=== PATIENT | female | born 1965 | race Caucasian/White ===

== ENCOUNTER 2019-10-22 17:09 | Emergency (ER) | payer BC, SELFPAY ==
[2019-10-22 17:16] VITALS: BP 128/86; PULSE 112; RESP 20; TEMP 37.6; O2SAT 98
--- NOTE | 2019-10-22 17:37 | ED.URI ---
HPI - URI/Sore Throat General Chief Complaint: Upper Respiratory Infection Stated Complaint: sore throat/swollen glands/cough Related Data Home Medications Medication Instructions Recorded Confirmed bupropion HCl [Wellbutrin XL] 300 mg PO QAM 10/22/19 10/22/19 conjugated estrogens [Premarin] 0.625 mg PO DAILY 10/22/19 10/22/19 cyclosporine [Restasis] 1 drp OPHTHALMIC (EYE) Q12H 10/22/19 10/22/19 desloratadine [Clarinex] 5 mg PO DAILY 10/22/19 10/22/19 fluticasone furoate [Flonase 1 spray INTRANASAL DAILY 10/22/19 10/22/19 Sensimist] levothyroxine [Synthroid] 125 mcg PO DAILY 10/22/19 10/22/19 montelukast [Singulair] 10 mg PO DAILY 10/22/19 10/22/19 omeprazole 40 mg PO DAILY 10/22/19 10/22/19 spironolactone 100 mg PO BID 10/22/19 10/22/19 Allergies Allergy/AdvReac Type Severity Reaction Status Date / Time Sulfa (Sulfonamide Allergy Mild RASH Verified 10/22/19 17:24 Antibiotics) etodolac Allergy Unknown RASH Verified 10/22/19 17:24 Review of Systems Review of Systems: Narrative: CONSTITUTIONAL: Reports fever, chills, intermittently x1 week EYES: Denies visual changes, redness, or discharge. ENT: Reports rhinorrhea, congestion, sore throat, and bilateral otalgia. Reports facial pressure. CARDIOVASCULAR: Denies chest pain, palpitations, or edema. RESPIRATORY: Reports cough, denies dyspnea. GASTROINTESTINAL: Denies abdominal pain, nausea, vomiting, or diarrhea. GENITOURINARY: Denies dysuria or hematuria. SKIN: Denies rash or itching. MUSCULOSKELETAL: Denies back pain, joint pain, or myalgia. NEUROLOGIC: Denies headache, numbness, dizziness, or weakness. PSYCHIATRIC: Denies anxiety or depression. [facility] Past Medical History Medical History Acute ITP Anxiety Asthma Bipolar disorder Depression Endometriosis GERD (gastroesophageal reflux disease) GI bleed Hiatal hernia Hypothyroidism IBS (irritable bowel syndrome) Lupus (systemic lupus erythematosus) Migraines Peripheral neuropathy Pneumonia Sciatica Surgical History Surgical History H/O hysterectomy with oophorectomy S/P insertion of spinal cord stimulator Social History Social History (Updated 10/22/19 @ 17:42 by RICHIE Segal) Smoking status: Current every day smoker Alcohol intake: current Alcohol use details: Socially Substance use: never Gender identity (if verbalized by the patient): Female Exam Narrative: Exam Narrative: GENERAL: Well-appearing, well-nourished, and in no acute distress. HEAD: Normocephalic, atraumatic. EYES: EOMI. No redness or drainage. Conjunctiva are normal. ENT: Mucous membranes pink and moist. Nares clear. No rhinorrhea. TMs normal bilaterally. Throat erythema, edema. Maxillary sinus tenderness with palpation. Uvula midline. NECK: AROM. Supple. Positive cervical lymphadenopathy. CHEST: No respiratory distress. Clear to auscultation. HEART: Regular rate and rhythm. No murmur appreciated. Normal peripheral pulses. EXTREMITIES: Normal range of motion. No edema. SKIN: Warm, dry, no rash. NEURO: No focal deficits. Alert and oriented x3. Gait steady. PSYCH: Normal affect. No signs of depression or anxiety. Course Vital Signs Vital signs: Vital Signs Temperature 37.6 C H 10/22/19 17:16 Pulse Rate 112 H 10/22/19 17:16 Respiratory Rate 10/22/19 17:16 Blood Pressure 128/86 10/22/19 17:16 Pulse Oximetry 98 10/22/19 17:16 Temperature 37.6 C H 10/22/19 17:16 Pulse Rate 112 H 10/22/19 17:16 Respiratory Rate 10/22/19 17:16 Blood Pressure 128/86 10/22/19 17:16 Pulse Oximetry 98 10/22/19 17:16 MDM - URI/Sore Throat Differential Diagnosis Differential diagnosis: Likely upper respiratory infection, sinusitis and pharyngitis Critical Care Time Critical Care Time Critical Care Time: No Discharge Plan Discharge Clinical Impression: Sinusi
== END 2019-10-22 17:58 | disposition home or self-care (01) ==
PROVIDERS: Emergency Provider Nurse Practitioner; PCP Emergency Medicine
DX: J32.9 Chronic sinusitis, unspecified (principal); J06.9 Acute upper respiratory infection, unspecified; F17.200 Nicotine dependence, unspecified, uncomplicated; J45.909 Unspecified asthma, uncomplicated; N80.9 Endometriosis, unspecified; K21.9 Gastro-esophageal reflux disease without esophagitis; E03.9 Hypothyroidism, unspecified; M32.9 Systemic lupus erythematosus, unspecified; G62.9 Polyneuropathy, unspecified; F32.9 Major depressive disorder, single episode, unspecified; Z96.89 Presence of other specified functional implants
CPT/HCPCS: 87081; 87804; 87880; 99213; G0463

== ENCOUNTER 2020-02-04 07:00 | Outpatient (CLI) | payer BC, SELFPAY ==
--- NOTE | ~2020-02-04 | CT_ITS ---
EXAMINATION: CT abdomen pelvis w con INDICATION: Generalized abdominal pain, nausea, diarrhea TECHNIQUE: Computed tomographic images of the abdomen and pelvis were obtained after the administrati on of 100 cc of Omnipaque 350 intravenous contrast. The dose-length product (DLP) was 248.45 mGy-cm. Automated exposure control and iterative reconstruction technique were employed. COMPARISON: 08/24/2019 FINDINGS: The lung bases are clear. The heart size is normal. The liver, spleen, pancreas, gallbladde r, and adrenal glands are normal. Again noted is mild atrophy of the left kidney with areas of scarri ng in the upper and lower poles. The right kidney is unremarkable. There is a greater than normal num nick of fluid-filled, nondistended small bowel loops. No pathologically enlarged abdominal or pelvic l ymph nodes are identified. There is no free intraperitoneal gas or evidence of bowel obstruction. A m oderate volume of colonic stool is present. The appendix is normal. There is mild lumbar spondylosis. IMPRESSION: 1. Greater than normal number of fluid-filled, nondistended small bowel loops, suggestive of enteriti s. Reviewed, dictated and finalized at location A. IMPRESSION: 1. Greater than normal number of fluid-filled, nondistended small bowel loops, suggestive of enteritis.
== END 2020-02-04 07:01 | disposition home or self-care (01) ==
PROVIDERS: PCP Emergency Medicine; Visit Provider Internal Medicine Gastroenterology
DX: R10.84 Generalized abdominal pain (principal); R19.7 Diarrhea, unspecified; K21.9 Gastro-esophageal reflux disease without esophagitis; E03.9 Hypothyroidism, unspecified; M32.9 Systemic lupus erythematosus, unspecified; Z12.11 Encounter for screening for malignant neoplasm of colon; Z86.010 Personal history of colon polyps; R93.3 Abnormal findings on diagnostic imaging of other parts of digestive tract
CPT/HCPCS: 74177; Q9967

== ENCOUNTER 2020-10-21 07:15 | Outpatient (CLI) | payer BC, SELFPAY ==
--- NOTE | ~2020-10-21 | MM_ITS ---
EXAMINATION: MM screening zacarias BI w cortney HISTORY: Screening mammogram TECHNIQUE: Craniocaudal and mediolateral oblique 3-D tomosynthesis images were obtained and synthetic 2-D images were generated. CAD analysis was submitted and interpreted. COMPARISON: 09/28/2019, 09/14/2018, 06/15/2017, 05/15/2017 BREAST PARENCHYMAL COMPOSITION: The breasts are heterogeneously dense, which may obscure small masses . FINDINGS: Scattered benign-appearing calcifications are present. There is no evidence of suspicious m ass, calcification, or architectural distortion to suggest malignancy in either breast. There has bee n no suspicious interval change. IMPRESSION: 1. No mammographic evidence of malignancy. 2. Recommend routine screening mammography in one year. BI-RADS Category 2: Benign finding(s). Reviewed, dictated and finalized at location A. RIPSAW OPERATOR
== END 2020-10-21 07:16 | disposition home or self-care (01) ==
LOC: ANHIMG 07:17
PROVIDERS: PCP Emergency Medicine; Visit Provider Nurse Practitioner
DX: Z12.31 Encounter for screening mammogram for malignant neoplasm of breast (principal)
CPT/HCPCS: 77063; 77067

== ENCOUNTER 2024-01-09 08:29 | Outpatient (CLI) | payer BC, SELFPAY ==
--- NOTE | ~2024-01-09 | MM_ITS ---
EXAMINATION: MM screening zacarias BI w cortney HISTORY: Screening mammogram TECHNIQUE: Craniocaudal and mediolateral oblique 3-D tomosynthesis images were obtained and synthetic 2-D images were generated. CAD analysis was submitted and interpreted. COMPARISON: October 21, 2020, September 28, 2019 bilateral screening mammogram examinations BREAST PARENCHYMAL COMPOSITION: The breasts are heterogeneously dense, which may obscure small masses . FINDINGS: There are scattered bilateral benign calcifications. There is no evidence of suspicious mas s, calcification, or architectural distortion to suggest malignancy in either breast. There has been no suspicious interval change. IMPRESSION: 1. No mammographic evidence of malignancy. 2. Recommend routine screening mammography in one year. BI-RADS Category 2: Benign finding(s). Reviewed, dictated and finalized at location A.
--- NOTE | ~2024-01-09 | DEXA_ITS ---
Bone Density Report Name: BRIGIDA WHITE Age: 58 Sex: Female Ethnicity: White Date of : 1965 Indication: postmenopausal; screening for osteoporosis; height loss; inflammatory bowel disease; prior fracture; asthma or emphysema; end stage renal disease; hysterectomy; secondary osteoporosis; Referring Provider: JENNIFER, AUGIE Study: Bone densitometry was performed. Exam Date: January 09, 2024 Accession number: [id number] Bone Density: Region BMD T-score Z-score Classification Femoral Neck (Left) 0.839 -0.1 1.2 Normal Total Hip (Left) 1.058 1.0 1.9 Normal Femoral Neck (Right) 0.856 0.1 1.4 Normal Total Hip (Right) 1.035 0.8 1.8 Normal Total Hip Mean 1.046 0.9 1.9 Normal World Health Organization criteria for BMD impression classify patients as: Normal (T-score at or above -1.0), Osteopenia (T-score between -1.0 and -2.5), or Osteoporosis (T-score at or below -2.5). 10-year Fracture Risk: FRAX not reported because: All T-scores for Spine Total, Hip Total, Femoral Neck at or above -1.0 Previous Exams: Region Exam Age BMD T-score BMD Change BMD Change Date g/cm2 vs Baseline vs Previous Total Hip(Left) 01/09/2024 58 1.058 1.0 -0.126 (-10.6% -0.221 (-17.3% 12/08/2018 53 1.279 2.8 0.095 (8.0%)* 0.095 (8.0%)* 09/03/2015 50 1.184 2.0 Total Hip(Right) 01/09/2024 58 1.035 0.8 -0.136 (-11.6% -0.198 (-16.1% 12/08/2018 53 1.233 2.4 0.062 (5.3%)* 0.062 (5.3%)* 09/03/2015 50 1.171 1.9 *Denotes significance at 95% confidence level, LSC for Total Hip = 0.027 g/cm2 # Denotes dissimilar scan types or analysis methods Clinical Information Provided by Patient: Has had a low trauma fracture Has secondary osteoporosis Has used the following medications: Vitamin D Has the following medical conditions: Asthma or Emphysema, End stage renal disease, Inflammatory bowel diseases, Hysterectomy Patient maximum height was 64 No regular weight bearing exercise Does not regularly consume dairy products Drinks caffeinated beverages Onset of menses at age 10 Number of children 2 Impression: The patient has normal bone mass. The patient has risk factors, including: previous fracture. No significant bone loss was observed. Discussion: BONE DENSITY IS ABOVE THE MINIMUM DESIRABLE LEVEL AT ALL SKELETAL SITES TESTED. This patient?s bone mineral density is above the minimum desirable level (T-score -1.0 or better) at all sites measured. The patient should follow a healthfu
== END 2024-01-09 08:30 | disposition home or self-care (01) ==
PROVIDERS: PCP Emergency Medicine; Visit Provider Nurse Practitioner
DX: Z12.31 Encounter for screening mammogram for malignant neoplasm of breast (principal); Z78.0 Asymptomatic menopausal state; Z13.820 Encounter for screening for osteoporosis
CPT/HCPCS: 77063; 77067; 77080

== ENCOUNTER 2025-04-23 13:59 | Outpatient (CLI) | payer BC, SELFPAY ==
--- NOTE | ~2025-04-23 | MM_ITS ---
EXAMINATION: MM screening [facility] BI w cortney HISTORY: Screening TECHNIQUE: Craniocaudal and mediolateral oblique 3-D tomosynthesis images were obtained and synthetic 2-D images were generated. CAD analysis was submitted and interpreted. COMPARISON: Comparison to multiple prior studies sequentially, with oldest reviewed study dated 05/17. BREAST PARENCHYMAL COMPOSITION: The breasts are heterogeneously dense, which may obscure small masses . FINDINGS: There is no evidence of suspicious mass, calcification, or architectural distortion to sug gest malignancy in either breast. Scattered benign-appearing calcifications are present. IMPRESSION: 1. No mammographic evidence of malignancy. 2. Recommend routine screening mammography in one year. BI-RADS Category 2: Benign finding(s). Reviewed, dictated and finalized at location B.
--- OUTSIDE RECORDS SUMMARY | 2025-04-23 14:10 | XMS_ITS | Clinical Summary ---
Author Organization [facility] Address [address] [place] [address] Care Team Providers Care Net Making Supervisor Name Role Phone Sid Ortiz MD Primary Care Provider [phone] Allergies Active Allergy Reactions Criticality Noted Date Comments Sulfa (Sulfonamide Antibiotics) Rash Medium Medications buPROPion XL (WELLBUTRIN XL) 300 mg 24 hr tablet Take 300 mg by mouth daily 4 Active cholecalciferol (VITAMIN D-3) 25 mcg (1,000 unit) tablet Take by mouth daily Active biotin 5 mg tablet Take 5 mg by mouth daily Active desloratadine (Clarinex) 5 mg tablet Take 1 tablet by mouth daily 9 Active hydrOXYchloroQUIN E (PLAQUENIL) 200 mg tablet TAKE ONE AND ONE-HALF TABLETS DAILY 9 Active levothyroxine (Synthroid) 137 mcg tablet Take 1 tablet by mouth daily 1 Active montelukast (Singulair) 10 mg tablet Take 1 tablet by mouth daily 9 Active omeprazole (PriLOSEC) 40 mg capsule Take 40 mg by mouth 9 Active spironolactone (ALDACTONE) 100 mg tablet Take 100 mg by mouth 2 (two) times a day Active fluticasone propionate (FLONASE) 50 mcg/actuation nasal spray Administer 1 spray into each nostril daily Active cycloSPORINE (RESTASIS) 0.05 % ophthalmic emulsion 1 drop 2 (two) times a day Active epinastine 0.05 % ophthalmic solution 1 drop 2 (two) times a day Active levothyroxine (SYNTHROID) 125 mcg tablet Take 125 mcg by mouth medical or surgical instrument maker before breakfast Active lubiprostone (AMITIZA) 24 mcg capsule Take 24 mcg by mouth 2 (two) times a day with meals Active hyoscyamine (LEVSIN) 0.125 mg tabletIndications :Urinary Incontinence Take 0.125 mg by mouth every 4 (four) hours as needed for cramping Active meclizine (ANTIVERT) 12.5 mg tablet Take 12.5 mg by mouth 3 (three) times a day as needed for dizziness Active HYDROcodone-aceta minophen (NORCO) 5-325 mg per tabletIndications :Pain,dx: post op pain Take 1 tablet by mouth every 4 (four) hours as needed for pain 30 tablet Active Active Problems Problem Noted Date Diagnosed Date Neuropathy 04/29/2021 Right carpal tunnel syndrome 03/02/2021 Cubital tunnel syndrome on right 02/23/2021 Essential (primary) hypertension 12/25/2020 Gastro-esophageal reflux disease without esophag itis 12/25/2020 Chronic constipation 03/11/2020 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 11/09/2019 Chronic pain syndrome 07/09/2016 Somatic symptom disorder, pe rsistent, severe, with predominant pain 07/09/2016 Knee pain 05/08/2014 Major depressive disorder, single episode, mild 11/27/2013 Malaise and fatigue 11/27/2013 Low back pain 02/16/2013 Encounter for long-term (cur rent) use of high-risk medication 10/31/2012 Systemic lupus erythematosus 09/15/2011 Hypothyroidism 09/19/1994 Surgical History Surgery Date Site/Laterality Comments TEMPOROMANDIBULAR JOINT ARTHROPLASTY HYSTERECTOMY BLADDER SURGERY SPINE SURGERY 09/19/2016 - 09/18/2017 Left SPINAL CORD STIMULATOR CARPAL TUNNEL RELEASE 04/09/2021 Right RT.OPEN CTR Medical History Medical History Date Comments Peripheral neuropathy Lupus 2010 LUPUS SLE Fibromyalgia PONV (postoperative nausea and vomiting) Motion sickness Asthma Pneumonia Irritable bowel syndrome GERD (gastroesophageal reflux disease) Urinary tract infection Hypothyroidism Headache Depression Anxiety Family History Medical History Relation Name Comments Cancer Father Heart disease Father Arthritis Mother Cancer Mother Relation Name Status Comments Father Mother Social History Tobacco Use Types Packs/Day Years Used Date Smoking Tobacco: Never Smokeless Tobacco: Never AUDIT-C Answer Date Recorded Q1: How often do you have a drink containing alc ohol? 2-3 times a week 04/02/2021 Q2: How many drinks containi ng alcohol do you have on a typical day when you are drinking? 1 or 2 04/02/2021 Q3: How often do you have si x or more drinks on one occasion? Never 04/02/2021 Comments No Sex and Gender Information Value Date Recorded Sex Assigned at Not on file Legal Sex Female 12:55 AM X [employer] SERV[employer] ENGINE[employer] Gender Identity Female 02/24/2021 10:21 AM CDT Sexual Orientation Not on file Obstetrics History Last Filed Vital Signs Vital Sign Reading Time Taken Comments Blood Pressure 128/81 04/09/2021 11:20 AM CDT Pulse 69 04/09/2021 11:20 AM CDT Temperature 36.3 C (97.3 F) 04/09/2021 10:50 AM CDT Respiratory Rate 16 04/09/2021 11:20 AM CDT Oxygen Saturation 96% 04/09/2021 11:20 AM CDT Inhaled Oxygen Concentration - - Weight 61.7 kg (136 lb 1.6 oz) 04/09/2021 7:49 A M CDT Height 160 cm (5' 3) 04/09/2021 7:49 AM CDT Body Mass Index 24.11 04/09/2021 7:49 AM CDT Plan of Treatment Not on file Insurance [address] [place] [address] [facility] [employer] ACCESS CHOICE Care Teams Net Making Supervisor Relationship Specialty Start Date End Date Sid Ortiz MD [address] [place] [address] PCP - General Family Medicine 01/09/21
--- OUTSIDE RECORDS SUMMARY | 2025-04-23 14:10 | XMS_ITS | Encounter Summary ---
Author Organization [facility] Address [facility] [place] [address] Care Team Providers Care Yarrow Gatherer Name Role Phone Cande Dudley MD Primary Care Provider [phone] Encounter Details Date Type Department Care Team (Late st Contact Info) Description 11/27/2024 [facility] Family Medicine [facility] [address] [place] [phone] Cande Dudley MD [address] [place] [id number] Persistent cough Social History Tobacco Use Types Packs/Day Years Used Date Smoking Tobacco: Never Smokeless Tobacco: Never Alcohol Use Standard Drinks/Week Comments Yes 1.7 (1 standard drink = 0.6 oz p ure alcohol) occ B1300 Health Literacy Answer Date Recor ded How often do you need to hav e someone help you when you read instructions, pamphlets, or other written material from your doctor or pharmacy? Never 06/20/2024 [facility] Utilities Answer Date Recorded In the past 12 months has e [employer], gas, oil, or water [employer] threatened to shut off services in your home? No 06/20/2024 Humiliation, Afraid, Rape, and Kick questionnair e Answer Date Recorded Within the last year, have y ou been afraid of your partner or ex-partner? No 06/20/2024 Within the last year, have y ou been humiliated or emotionally abused in other ways by your partner or ex-partner? No Within the last year, have y ou been kicked, hit, slapped, or otherwise physically hurt by your partner or ex-partner? No 06/20/2024 Within the last year, have y ou been raped or forced to have any kind of sexual activity by your partner or ex-partner? No 06/20/2024 Social Connection and Isolat ion Panel [NHANES] Answer Date Recorded In a typical week, how many times do you talk on the phone with family, friends, or neighbors? Three times a week 06/20/2024 How often do you get togethe r with friends or relatives? Twice a week 06/20/2024 How often do you attend chur ch or restorationist services? More than 4 times per year 06/20/2024 Do you belong to any clubs o r organizations such as taoist groups, unions, fraternal or athletic groups, or school groups? No 06/20/2024 How often do you attend meet ings of the clubs or organizations you belong to? Never 06/20/2024 Are you , , di vorced, , never , or living with a partner? 06/20/2024 AUDIT-C Answer Date Recorded Q1: How often do you have a drink containing alc ohol? 2-4 times a month 06/20/2024 Q2: How many drinks containi ng alcohol do you have on a typical day when you are drinking? 1 or 2 06/20/2024 Q3: How often do you have si x or more drinks on one occasion? Never 06/20/2024 Overall Financial Resource Strain (CARDIA) Answe r Date Recorded How hard is it for you to pa y for the very basics like food, housing, medical care, and heating? Not hard at all 06/20/2024 PHQ-2 Answer Date Recorded Patient Health Questionnaire-2 Score 0 11/23/2024 [facility] - Occupational Stress Questionnaire Answer Date Recorded Do you feel stress - tense, restless, nervous, or anxious, or unable to sleep at night because your mind is troubled all the time - these days? To some extent 06/20/2024 Exercise Vital Sign Answer Date Recorde d On average, how many days pe r week do you engage in moderate to strenuous exercise (like a brisk walk)? 0 days 06/20/2024 On average, how many minutes do you engage in exercise at this level? 0 min 06/20/2024 Hunger Vital Sign Answer Date Recorded Within the past 12 months, y ou worried that your food would run out before you got the money to buy more. Never true 06/20/20 24 Within the past 12 months, t he food you bought just didn't last and you didn't have money to get more. Never true 06/20/2024 PRAPARE - Transportation Answer Date Re corded In the past 12 months, has l ack of transportation kept you from medical appointments or from getting medications? No 10/2023 In the past 12 months, has l ack of transportation kept you from meetings, work, or from getting things needed for daily living? No 06/20/2024 Housing Stability Vital Sign Answer Javier e Recorded In the last 12 months, was t here a time when you were not able to pay the mortgage or rent on time? No 06/20/2024 In the past 12 months, how m any times have you moved where you were living? 2 06/20/2024 At any time in the past [address] [facility], were you homeless or living in a senior living (including now)? No 06/20/2024 Comments No Sex and Gender Information Value Date Recorded Sex Assigned at Female 10/05/2024 9:12 AM FERMENTER [place] Legal Sex Female 11:15 AM CDT Gender Identity Not on file Sexual Orientation Not on file documented as of this encounter Functional Status * Are you deaf or do you have serious difficulty hearing Answer Date of Assessment Author Status No 06/20/2024 11:00 PM ELMAT Carol Oreilly RN Active * Are you blind or do you have serious difficulty seeing, even when wearing glasses? Answer Date of Assessment Author Status No 06/20/2024 11:00 PM ELMAT Carol Oreilly RN Active * Do you have serious difficulty walking or climbing stairs? Answer Date of Assessment Author Status No 06/20/2024 11:00 PM Carol Long RN Active * Do you have difficulty dressing or bathing? Answer Date of Assessment Author Status No 06/20/2024 11:00 PM Carol Long RN Active * Because of a physical, mental, or emotional condition, do you have difficulty doing errands alone such as visiting a doctor's office or shopping? Answer Date of Assessment Author Status No 06/20/2024 11:00 PM CDT Carol Oreilly RN Active documented as of this encounter Mental Status * Because of a physical, mental, or emotional condition, do you have serious difficulty concentrating, remembering, or making decisions? Answer Entry Date Author Status No 06/20/2024 11:00 PM CDT Carol Oreilly RN Active documented in this encounter Progress Notes * Cande Dudley MD - 11/27/2024 2:18 PM CDT concur documented in this encounter Plan of Treatment Upcoming Encounters Date Type Department Care Team (Late st Contact Info) Description 04/23/2025 4:00 PM CDT Appointment [facility] [address] [place] [address] [place], [place] [address] [id number] 04/25/2025 4:00 PM CDT Appointment [facility] [address] [place] [address] [place], [place] [address] [id number] 06/20/2025 3:00 PM CDT Office Visit [facility] Family Medicine [facility] [address] [place] [address] Cande Dudley MD [address] [place], [place] [id number] documented as of this encounter Goals Goal Patient Goal Type Associated Problems Recent Progress Patient-Stated? Author Health - patient able to perform ADLs independently Lifestyle No Kelly Pollack RN documented as of this encounter Visit Diagnoses Not on filedocumented in this encounter Additional Health Concerns Assessment Noted Time PHQ-9 Depression Total Score: 2 06/28/20 2:57 PM CDT documented as of this encounter Care Teams Yarrow Gatherer Relationship Specialty Start Date End Date Cande Dudley MD [address] [place] [address] PCP - General FAMILY PRACTICE 06/21/24 documented as of this encounter
--- OUTSIDE RECORDS SUMMARY | 2025-04-23 14:10 | XMS_ITS | Clinical Summary ---
Author Organization [facility] Address [address] [place] [address] Care Team Providers Care Garment Manufacturer Name Role Phone Cande Dudley MD Primary Care Provider [phone] Allergies Active Allergy Reactions Criticality Noted Date Comments Sulfa Antibiotics Rash Low 06/20/2024 Medications albuterol sulfate HFA 108 (90 Base) MCG/ACT inhaler Inhale 2 puffs into the lungs every 6 (six) hours as needed for Shortness of breath or Wheezing (Asthmatic cough). 3 Active buPROPion XL (WELLBUTRIN XL) 150 MG 24 hr tablet Take 1 tablet (150 mg total) by mouth every morning. 4 Active Cholecalciferol (VITAMIN D3 OR) Take 1 Dose by mouth daily. Active cycloSPORINE (RESTASIS) 0.05 % ophthalmic emulsion Place 1 drop into both eyes daily. Active desloratadine (CLARINEX) 5 MG Tab tablet Take 1 tablet (5 mg total) by mouth daily. 4 Active desvenlafaxine ER (PRISTIQ) 50 MG 24 hr tablet Take 1 tablet (50 mg total) by mouth daily. 4 Active fluticasone propionate (FLONASE) 50 MCG/ACT nasal spray 1 spray by Each Nostril route daily. 3 Active hydroxychloroquin e (PLAQUENIL) 200 MG tablet Take 1.5 tablets (300 mg total) by mouth daily. 4 Active levothyroxine (SYNTHROID) 100 MCG tablet Take 1 tablet (100 mcg total) by mouth every morning. Active montelukast (SINGULAIR) 10 MG tablet Take 1 tablet (10 mg total) by mouth daily. 4 Active olopatadine (PATADAY) 0.7 % ophthalmic solution Place 1 drop into both eyes daily. 3 Active GABAPENTIN OR Take 1 capsule by mouth nightly as needed (neuropathy). Active omeprazole (PRILOSEC) 20 MG capsule Take 1 capsule (20 mg total) by mouth 2 (two) times a day. Active Brimonidine Tartrate (LUMIFY OP) Place 1 drop into both eyes 2 (two) times daily as needed (Dry eye). Active NON FORMULARY Take 2.5 mg by mouth daily. L-methyl folate Active Magnesium Glycinate Powder Take 1 Scoop by mouth daily. Mix with 8 oz water Active lisinopril (PRINIVIL) 10 MG tabletIndications :Primary hypertension Take 1 tablet (10 mg total) by mouth daily. 90 tablet 1 5 Active AIRSUPRA 90-80 MCG/ACT Aerosol Take 2 puffs by mouth every 4 (four) hours as needed. 4 Active estradiol (VIVELLE-DOT) 0.0375 mg/24hr patch APPLY 1 PATCH TOPICALLY TO THE SKIN 2 TIMES A WEEK DIRECTED 5 Active liothyronine (CYTOMEL) 5 MCG Tab every 12 (twelve) hours. Active pregabalin (LYRICA) 50 MG capsule 1 capsule (50 mg total) every 12 (twelve) hours. Active ZEPBOUND 2.5 MG/0.5ML injection Inject 2.5 mg into the skin once a week. 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 06/20 Depression screen 07/13/2024 Hypertensive urgency 06/20/2024 Chronic kidney disease 06/01/2021 Irritable bowel syndrome with constipation 04/30 Essential hypertension, benign 12/25/2020 Gastro-esophageal reflux disease without esophag itis 12/25/2020 Mild intermittent asthma, uncomplicated (HHS/HCC ) 12/02/2020 Irritable bowel syndrome with constipation 03/11 Idiopathic progressive polyneuropathy 03/10/2020 Chronic pain syndrome 07/09/2016 Knee pain 05/08/2014 Major depressive disorder, single episode, mild 11/27/2013 Lupus erythematosus 11/12/2009 Allergic rhinitis 02/29/2008 Intrinsic asthma (HHS/HCC) 02/29/2008 Hypothyroidism 11/12/1989 Encounters Date Type Department Care Team Description 04/18/2025 10:03 AM CDT - 04/18/2025 11:59 PM CDT Hospital Encounter [facility] [address] [place] [address] Non-Staff, Provider Discharge Disposition: Home or Self Care (Routine Discharge) 04/18/2025 Travel 04/03/2025 Transcribe Orders [facility] Pre Access Team [address] [place] [address] Chente Lucia MD 04/02/2025 Scan [facility] HEALTH INFO SRVCS Scanned, Doc [facility] 01/26/2025 Orders Only [facility] Family Medicine [id number] [place] [address] Cande Dudley MD from Last 3 Months Immunizations Immunization Administration Dates Next Due Fluzone (IIV3, Trivalent, 0.5 ML Prefilled Syrin ) 07/13/2024 Influenza (Generic) 07/16/2021,08/29/2015 Influenza Adult (Generic) 07/15/2021,05/28/2020 MODERNA COVID-19 (FRYLINE ATTENDANT LEO CHELSIE), MRNA, LNP-S, PF, 50 MCG/ 0.25 ML DOSE 01/01/2022 PFIZER COVID-19 (ORIGINAL FO RMULATION, PURPLE CAP) mRNA, LNP-S, PF, 30 MCG/0.3 ML DOSE 01/15/2021,12/20/2020 Family History Medical History Relation Comments Cancer Father Heart Disease Father Cancer Mother Hypertension Mother Asthma Son Depression Son Mental Health Son Relation Status Comments Father Mother Son Social History Tobacco Use Types Packs/Day Years Used Date Smoking Tobacco: Never Smokeless Tobacco: Never Tobacco Cessation:Counseling Given: No Alcohol Use Standard Drinks/Week Comments Yes 1.7 (1 standard drink = 0.6 oz p ure alcohol) occ B1300 Health Literacy Answer Date Recor ded How often do you need to hav e someone help you when you read instructions, pamphlets, or other written material from your doctor or pharmacy? Never 06/20/2024 [facility] Utilities Answer Date Recorded In the past 12 months has th e electric, gas, oil, or water company threatened to shut off services in your [...] 06/20/2024 How often do you attend chur or faith services? More than 4 times per year 06/20/2024 Do you belong to any clubs o r organizations such as orthodoxy groups, unions, fraternal or athletic groups, or [...] Recorded Patient Health Questionnaire-2 Score 0 11/23/2024 [facility] [place] of Occupat ional Health - Occupational Stress Questionnaire Answer Date [...] any time in the past 12 m [facility], were you homeless or living in a long term (including now)? No 06/20/2024 Comments No Sex and Gender Information Value Date Recorded Sex Assigned at Female 10/05/2024 9:12 AM ELECTRONIC SYSTEMS SECURITY ASSESSMENT Legal Sex Female 11:15 AM CDT Gender Identity Not on file Sexual Orientation Not on file Last Filed Vital Signs Vital Sign Reading Time Taken Comments Blood Pressure 110/75 01/01/2025 3:38 PM CDT Pulse 85 01/01/2025 3:38 PM CDT Temperature 36.4 C (97.6 F) 01/01/2025 3:38 PM CDT Respiratory Rate 16 01/01/2025 3:38 PM CDT Oxygen Saturation 100% 01/01/2025 3:38 PM CDT Inhaled Oxygen Concentration - - Weight 64.7 kg (142 lb 9.6 oz) 01/01/2025 3:38 P M CDT Height 160 cm (5' 3) 12/12/2024 1:05 PM CDT Body Mass Index 25.26 12/12/2024 1:05 PM CDT Plan of Treatment Upcoming Encounters Date Type Department Care Team (Late st Contact Info) Description 04/23/2025 4:00 PM CDT [facility] [address] [place] [address] Gre[place]osey, [place] [address] [address] 04/25/2025 4:[address] [facility] [address] [place] [address] [place], [place] [address] [address] 06/20/2025 3:00 PM CDT Office Visit [facility] Family Medicine [facility] [address] [place] [phone] Cande Dudley MD [address] [place] [address] Health Maintenance Due Date Last Done Comments DTaP, Tdap and Td Vaccines ( 1 - Tdap) 1982 Pneumococcal Vaccine: 50+ Years (1 of 2 - PCV) 1982 Annual Physical 07/13/2025 07/13/2024 COVID-19 Vaccine (4 - 2023-2 5 season) 2025 01/01/2022, 01/15/2021, 12/20/2020 Postponed from 05/20/2024 (Patient Refused) RSV Immunization or 60+ Years (1 - Risk 60-74 years 1-dose series) 07/13/2025 Postponed from 12/2022 (Patient Refused) Zoster Vaccines (1 of 2) 07/13/2025 Pos tponed from 2013 (Patient Refused) Colorectal Cancer Screening Colonoscopy (10 Years) 09/19/2025 Mammogram Screening 12/18/2025 Hepatitis C Completed 07/05/2024 PHQ-2 (Physician Council) Completed 11/23/2024 Meningococcal B Vaccine Aged Out No l onger eligible based on patient's age to complete this topic Meningococcal Vaccine Aged Out No danielle leonor eligible based on patient's age to complete this topic RSV Immunizations Under 20 Months Aged Out No longer eligible b ased on patient's age to complete this topic Goals Goal Patient Goal Type Associated Problems Recent Progress Patient-Stated? Author Health - patient able to perform ADLs independently Lifestyle No Kelly Pollack, RN Medical Devices Implanted Type Area Broadcast Engineer Device Identifier Shelf Expiration Date Model / Serial / Lot Stimulator Lead Implant-2016 Implanted:Qty : 1 on 10/01/2016 by Nicole Alfonso MD Lead Implant Spine Thoracic [employer] [id number] / [id number] / Stimulator Lead Implant-2016 Implanted:Qty : 1 on 10/01/2016 by Nicole Alfonso MD Lead Implant Spine Thoracic [employer] [id number] / [id number] / Stimulator Implant-2016 Implanted:Qty : 1 on 10/01/2016 by Nicole Alfonso MD Stimulator Implant Back [employer] [id number] / [id number] / Procedures Procedure Name Priority Date/Time Associated Diagnosis Comments XR ABD AP+LAT STAT 04/18/2025 10:48 AM CDT Encounter for imaging to screen for metal prior to MRI HEMOGLOBIN, GLYCOSYLATED Routine 01/26/2025 10:24 AM CDT CBC W/DIFF AUTOMATED Routine 01/26/2025 10:24 AM CDT COMPREHENSIVE METABOLIC PANEL Routine 01/26/2025 10:24 AM CDT LIPID PANEL Routine 01/26/2025 10:24 AM CDT HEPATITIS C ANTIBODY W/RFX TO HCV RNA Routine 07/05/2024 9:49 AM CDT from Last 3 Months or Most Recently Relevant to Health Maintenance Results * XR ABD AP+LAT (04/18/2025 10:48 AM CDT) Anatomical Region Laterality Modality Abdomen Radiographic Marla ging 04/18/2025 11:0 1 AM CDT Impressions 04/18/2025 11:44 AM CDT IMPRESSION: Implanted stimulator device with intact dual leads. Ordered By: PROVIDER NON-STAFF Interpreted By: Mal Rai, 04/18/2025 11:01 AM Narrative 04/18/2025 11:44 AM CDT [address] [address] IMAGING STUDIES: XR ABD AP+LAT DATE: 04/18/2025 10:30 AM HISTORY: Check for abandoned leads and Stimulator placement 60-year-old female. Requested evaluation of stimulator and leads prior to MRI. COMPARISON: No pertinent comparison at this institution. DISCUSSION: AP and lateral views of the mid chest to upper pelvis on 4 images. Implanted stimulator device in the left flank region with dual leads extending superiorly to the midthoracic region. Leads are intact. Transitional vertebral body at the lumbosacral junction. Incomplete fusion of the left transverse process near the thoracolumbar junction. No acute abnormality in the visualized lower chest. Nonobstructive bowel gas pattern. Procedure Note Mal Rai MD - 04/18/[address] [place] [address] IMAGING STUDIES: XR ABD AP+LATDATE: 04/18/2025 10:30 AM HISTORY: Check for abandoned leads and Stimulator -[id number] female. Requested evaluation of stimulator and leads prior toMRI. COMPARISON: No pertinent comparison at this institution. DISCUSSION: AP and lateral views of the mid chest to upper pelvis on 4 images. Implanted stimulator device in the left flank region with dual leadsextending superiorly to the midthoracic region. Leads are intact. Transitional vertebral body at the lumbosacral junction. Incomplete fusionof the left transverse process near the thoracolumbar junction. No acute abnormality in the visualized lower chest. Nonobstructive bowelgas pattern. IMPRESSION: Implanted stimulator device with intact dual leads. Ordered By: PROVIDER NON-STAFF Interpreted By: Mal Rai, 04/18/2025 11:01 AM Provider Non-Staff GENERAL IMAGING Final Result * HEMOGLOBIN, GLYCOSYLATED (01/26/2025 10:24 AM CDT) HGB A1C 5.2 <5.7 % of total Hgb [facility] [place]HA, [place] Comment: For the purpose of screening for the presence of diabetes: <5.7% Consistent with the absence of diabetes 5.7-6.4% Consistent with increased risk for diabetes (prediabetes) > or =6.5% Consistent with diabetes This assay result is consistent with a decreased risk of diabetes. Currently, no consensus exists regarding use of hemoglobin A1c for diagnosis of diabetes in children. According to [place] Diabetes Association (ADA) guidelines, hemoglobin A1c <7.0% represents optimal control in non- diabetic patients. Different metrics may apply to specific patient populations. Standards of Medical Care in Diabetes(ADA). ESTIMATED AVG GLUCOSE 103 mg/dL [place] TrevorOMAHA, [place] ESTIMATED AVG GLUCOSE 5.7 mmol/L [facility] TrevorOMAHA, [place] 01/26/2025 10:2 4 AM CDT 01/26/2025 10:26 AM CDT Narrative Resulting Agency Comment Performing Organization Information: Site ID: [place] Name: [facility] Address: [address] [place] [address] Director: Eduardo Cordoba Cande Dudley MD LABORATORY Final Result [facility] [place] [place] [place] [address], * (ABNORMAL) COMPREHENSIVE METABOLIC PANEL (01/26/2025 10:24 AM CDT) GLUCOSE 84 65 - 99 mg/dL [facility] Comment: Fasting reference interval BUN 24 7 - 25 mg/dL [facility] CREATININE S/P/B 1.19(H) 0.50 - 1.05 mg/dL [facility] [employer] [facility] GFR ESTIMATE 52(L) > OR = 60 mL/min/1. 73m2 [facility] [employer] [facility] BUN CREATININE RATIO 20 6 - 22 (calc) [facility] SODIUM S/P/B 139 135 - 146 mmol/L [facility] POTASSIUM S/P/B 4.6 3.5 - 5.3 mmol/L [facility] [employer] [facility] CHLORIDE S/P/B 103 98 - 110 mmol/L [facility] CO2 27 20 - 32 mmol/L [facility] CALCIUM S/P/B 9.6 8.6 - 10.4 mg/dL [facility] TOTAL PROTEIN S/P/B 6.9 6.1 - 8.1 g/dL [facility] ALBUMIN S/P/B 4.7 3.6 - 5.1 g/dL [facility] GLOBULIN 2.2 1.9 - 3.7 g/dL (calc) [facility] ALBUMIN/GLOBULIN RATIO 2.1 1.0 - 2.5 (calc) [facility] BILIRUBIN TOTAL S/P/B 0.6 0.2 - 1.2 mg/dL [facility] ALKALINE PHOSPHATASE S/P/B 59 37 - 153 U/L [facility] AST 18 10 - 35 U/L [facility] ALT 12 6 - 29 U/L [facility] Trevor [facility] 01/26/2025 10:2 4 AM CDT 01/26/2025 10:26 AM CDT Narrative Resulting Agency Comment Performing Organization Information: Site ID: [place] Name: [facility] Address: [address] [place] [address] Director: Eduardo Cordoba MD Cande Dudley MD LABORATORY Final Result Performing Organization Address City/[facility]/ZIP Co de Phone Number KOBI OCHOA [facility] [address] [place] [address], [place] * (ABNORMAL) LIPID PANEL (01/26/2025 10:24 AM CDT) CHOLESTEROL 175 <200 mg/dL [facility] HDL 48(L) > OR = 50 mg/dL [facility] TRIGLYCERIDES 105 <150 mg/dL [facility] LDL (CALCULATED) 107(H) mg/dL (calc) [facility] Comment: Reference range: <100 Desirable range <100 mg/dL for primary prevention; <70 mg/dL for patients with CHD or diabetic patients with > or = 2 CHD risk factors. LDL-C is now calculated using the Kade-Marlen calculation, which is a validated novel method providing better accuracy than the Friedewald equation in the estimation of LDL-C. Kade SS et al. MEHREEN. 2013;310(19): 8086-1392 (http://education.HipLogiq/faq/TMW139) CHOL/HDL RATIO 3.6 <5.0 (calc) [facility] NON HDL CHOLESTEROL 127 <130 mg/dL (calc) [facility] Comment: For patients with diabetes plus 1 major ASCVD risk factor, treating to a non-HDL-C goal of <100 mg/dL (LDL-C of <70 mg/dL) is considered a therapeutic option. 01/26/2025 10:2 4 AM CDT 01/26/2025 10:26 AM CDT Narrative Resulting Agency Comment Performing Organization Information: Site ID: [place] Name: [facility]clure Address: [place] [address] Director: Eduardo Cordoba MD Cande Dudley MD LABORATORY Final Result Performing Organization Address City/[facility]/ZIP Co de Phone Number [facility] [place] [address] [address], * (ABNORMAL) CBC W/DIFF AUTOMATED (01/26/2025 10:24 AM CDT) WBC 3.2(L) 3.8 - 10.8 Thousand/u L [facility] RBC 4.32 3.80 - 5.10 Million/uL [facility] HGB 13.2 11.7 - 15.5 g/dL [facility] HCT 40.2 35.0 - 45.0 % [facility] MCV 93.1 80.0 - 100.0 fL [facility] MCH 30.6 27.0 - 33.0 pg [facility] MCHC 32.8 32.0 - 36.0 g/dL [facility] Comment: For adults, a slight decrease in the calculated MCHC value (in the range of 30 to 32 g/dL) is most likely not clinically significant; however, it should be interpreted with caution in correlation with other red cell parameters and the patient's clinical condition. RDW 12.9 11.0 - 15.0 % [facility] PLT 178 140 - 400 Thousand/u L [facility] MPV 10.9 7.5 - 12.5 fL [facility] ABS. NEUTROPHILS 1,728 1,500 - 7,800 cells/uL [facility] [place] ABS. LYMPHOCYTES 1,037 850 - 3,900 cells/uL [facility] [place] ABS. MONOCYTES 307 200 - 950 cells/uL [facility] [place] ABS. EOSINOPHILS 99 15 - 500 cells/uL [facility] [place] ABS. BASOPHILS 29 0 - 200 cells/uL [facility] [place] SEG NEUTROPHILS 54 % [facility] [place] LYMPHOCYTES 32.4 % [facility] [place] MONOCYTES 9.6 % [facility] [place] EOSINOPHILS 3.1 % [facility] [place] BASOPHILS 0.9 % [facility] 01/26/2025 10:2 4 AM CDT 01/26/2025 10:26 AM CDT Narrative Resulting Agency Comment Performing Organization Information: Site ID: [place] Name: [facility] Address: [address] [address] Director: Eduardo Cordoba MD Cande Dudley MD LABORATORY Final Result [facility] Trevor [facility] [id number] [place] [address], * HEPATITIS C ANTIBODY W/RFX TO HCV RNA (07/05/2024 9:49 AM CDT) HEPATITIS C AB NON-REACT MARY NON-REACT MARY [facility] Trevor [facility] Comment: HCV antibody was non-reactive. There is no laboratory evidence of HCV infection. In most cases, no further action is required. However, if recent HCV exposure is suspected, a test for HCV RNA (test code 45146) is suggested. For additional information please refer to http://education.Dots ,LLC/faq/GWR17o4 (This link is being provided for informational/ educational purposes only.) 07/05/2024 9:49 AM CDT 07/05/2024 9:50 AM CDT Narrative Resulting Agency Comment Performing Organization Information: Site ID: [place] Name: [facility] Address: [address] [place] [address] Director: Eduardo Cordoba MD Cande Dudley MD LABORATORY Final Result Performing Organization Address [facility] Co de Phone Number [facility] [id number] [place] [address] from Last 3 Months or Most Recently Relevant to Health Maintenance [place] [address] Advance Directives * Full Code (Latest Code Status on File) Date Activated Date Inactivated Comments 06/20/2024 7:29 PM 06/21/2024 5:27 PM Care Teams Garment Manufacturer Relationship Specialty Start Date End Date Cande Dudley MD [address] [place] [address] PCP - General FAMILY PRACTICE 06/21/24
--- OUTSIDE RECORDS SUMMARY | 2025-04-23 14:10 | XMS_ITS | Referral Summary ---
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
--- OUTSIDE RECORDS SUMMARY | 2025-04-23 14:10 | XMS_ITS ---
Author Organization [facility] Address [address] [place] [address] Care Team Providers Care Pcat Instructor Name Role Phone Aaa, Provider Primary Care Provider Aquiles James Unavailable [phone] René Osborne Unavailable Unavailable Case, Kwadwo Unavailable [phone] REASON FOR VISIT 6 month Encounters Encounter Location Date Provider Diagnosis [facility] [place] [address] [place] [phone] 01/31/2025 Kwadwo Patton Plan Of Treatment Next Appt Details Provider Name:Deannader Patton, 08/09/2025 08:00:00 AM, [address] [place], [place], [id number], Progress Notes * AICHA WHITEOB:1965 (60 yo F)Acc No.[id number]:01/31/2025 UNLOCKED PROGRESS NOTE Progress Notes Patient: BRIGIDA ELLISON Provider: Elmo Patton MD :1965 A ge:59 Y S ex:Female Date:01/31/2025 Address:[facility] [address], [place], [place]-[address] Pcp:Provider Aaa Subjective: * Chief Complaints: * 1 . 6 month. * Medical History: Objective: * Vitals: Assessment: Plan: * Treatment: * * * Electronic signature of Jake Patton MD, [id number] on 04/23/2025 at 02:10 PM CDT Sign off status: Pending * Provider: Elmo Patton MD Date: 0 01/31/2025 Generated for Jose sellers/Presley/Kristian on: 0 04/23/2025 02:10 PM CDT
--- OUTSIDE RECORDS SUMMARY | 2025-04-23 14:10 | XMS_ITS | Clinical Summary ---
Author Organization [facility] Address [address] [place] [address] Care Team Providers Care Movie Theater Manager Name Role Phone Sid Ortiz MD Primary Care Provider [phone] Adolfo Llanes MD Unavailable [phone] Source Comments [facility],non-owned Affiliates and Associated Physician Practices is amultiple site organization consisting of ambulatory clinics and hospital sitesin [place], [place], [place] and [place]. This disclosure is being madepursuant to the Care Everywhere program and may not contain all information available regarding this patient. Last updated 18.[facility] Allergies Active Allergy Reactions Criticality Noted Date Comments Sulfa Antibiotics Rash Medium 06/20/2024 Sulfa Drugs Rash Medium 07/26/2014 Other reaction(s): rash Medications * Be aware that medications may not be up to date on this document. Alwaysverify current medications with the patient. montelukast (SINGULAIR) 10 MG tablet Take 1 (one) tablet by mouth once daily 4 Active desloratadine (CLARINEX) 5 MG tablet Take 1 (one) tablet by mouth once daily 4 Active dimenhyDRINATE (DRAMAMINE PO) Take 25 mg by mouth once daily as needed meclazine Active vitamin D3 (CHOLECALCIFEROL ) 25 MCG (1000 UNITS) tablet Take 1 (one) tablet by mouth once daily Active RESTASIS 0.05 % ophthalmic suspension 1 Active omeprazole (PRILOSEC) 40 MG capsuleIndicatio ns:Gastro-esopha geal reflux disease without esophagitis Take 1 (one) capsule by mouth daily before breakfast 2 Active pregabalin (Lyrica) 50 MG capsule Take 1 (one) capsule by mouth 2 times daily 180 capsule 1 3 Active estradiol (Estrace) 0.1 MG/GM vaginal cream 3 Active fluticasone propionate (Flonase) 50 MCG/ACT nasal spray [place] 2 (two) sprays into each nostril once daily 3 Active levothyroxine (Synthroid) 100 MCG tablet Take 1 (one) tablet by mouth once daily 3 Active olopatadine 0.7 % (Pataday) 0.7 % ophthalmic solution 1 (one) drop by Ophthalmic route every 24 hours 3 Active buPROPion SR 12hr (Wellbutrin SR) 150 MG tablet 4 Active desvenlafaxine succinate ER 24hr (Pristiq) 50 MG tablet Take 1 (one) tablet by mouth once daily Active Airsupra 90-80 MCG/ACT AERO Take 2 puffs by mouth every 4 hours as needed 4 Active lisinopril (Prinivil; Zestril) 10 MG tablet 5 Active estradiol (Climara) 0.075 MG/24HR patch Apply 1 (one) patch to skin every 7 days Active hydroxychloroqui ne (Plaquenil) 200 MG tabletIndication s:Systemic lupus erythematosus, unspecified SLE type, unspecified organ involvement status (HCC) TAKE 1 AND 1/2 TABLETS DAILY 135 tablet 1 5 Active Active Problems Problem Noted Date Diagnosed Date CKD stage G3b/A1, GFR 30-44 and albumin creatinine ratio <30 mg/g 06/01/2021 Irritable bowel syndrome with constipation 04/30 Neuropathy 04/29/2021 Right carpal tunnel syndrome 03/02/2021 Cubital tunnel syndrome on right 02/23/2021 Carpal tunnel syndrome, right upper limb 021 Essential hypertension, benign 12/25/2020 Gastro-esophageal reflux disease without esophag itis 12/25/2020 Lupus erythematosus 12/25/2020 Mild intermittent asthma, uncomplicated 12/03/19 21 Chronic constipation 03/11/2020 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 11/09/2019 Systemic lupus erythematosus 01/02/2019 Encounter for long-term (cur rent) use of high-risk medication 01/02/2019 Major depressive disorder, single episode, mild 11/27/2013 Hypothyroidism 11/27/2013 Encounter for long-term (cur rent) use of high-risk medication 10/31/2012 Systemic lupus erythematosus 09/15/2011 Hypothyroidism 09/19/1994 Lupus Neuropathy Chronic kidney disease Immunizations Immunization Administration Dates Next Due ShowUhow primary monoval ent 12+ yr 0.3mL Purple cap 01/14/2021,12/24/2020 INFLUENZA VACCINE 07/16/2021 INFLUENZA VACCINE, QUADR. (F LUZONE; FLULAVAL; FLUARIX; AFLURIA QUADRIVALENT; 6MO+), 0.5 ML (IIV4) 07/15/2021,05/28/2020,05/28/2020 Family History Medical History Relation Name Comments CAD (Coronary Artery Disease) Father s/p CABG Cancer - Prostate Father treated Hypertension Mother Relation Name Status Comments Father Alive Mother Alive Social History Tobacco Use Types Packs/Day Years Used Date Smoking Tobacco: Never Smokeless Tobacco: Never Tobacco Cessation:Counseling Given: Not Answered Alcohol Use Standard Drinks/Week Comments Not Currently 0 (1 standard drink = 0.6 oz pur e alcohol) rarely PHQ-2 Answer Date Recorded Patient Health Questionnaire-2 Score 0 11/27/2024 Comments No Sex and Gender Information Value Date Recorded Sex Assigned at Female 02/23/2021 6:53 AM CDT Legal Sex Female 7:39 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 Gender Identity Female 02/23/2021 6:53 AM CDT Sexual Orientation Not on file Last Filed Vital Signs Vital Sign Reading Time Taken Comments Blood Pressure 103/69 11/29/2024 8:19 AM CDT Pulse 83 11/29/2024 8:19 AM CDT Temperature 36.6 C (97.9 F) 11/29/2024 8:19 AM CDT Respiratory Rate 18 01/31/2023 9:45 AM CDT Oxygen Saturation 100% 11/29/2024 8:19 AM CDT Inhaled Oxygen Concentration - - Weight 65.9 kg (145 lb 3.2 oz) 11/29/2024 8:19 A M CDT Height 160 cm (5' 3) 11/29/2024 8:19 AM CDT Body Mass Index 25.72 11/29/2024 8:19 AM CDT Plan of Treatment Upcoming Encounters Date Type Department Care Team (Late st Contact Info) Description 06/05/2025 12:40 PM CDT Office Visit [facility] - Rheumatology [address] [place] [address], [place] [address] Miya Patel MD [address] [place] [address] [address] [place] [phone] 12/05/2025 8:30 AM CDT Office Visit [facility] - Nephrology [address] [place] [address] [place] [phone] Phillip Perez MD [address] [place] [address] [address] [place] [address] Health Maintenance Due Date Last Done Comments COLOGUARD (AGES 45-75) - COLON CA SCREENING 1963 COLON MONITORING 1963 COLONOSCOPY - COLON CA SCREENING 1963 CT COLONOGRAPHY - COLON CA SCREENING 1963 Colorectal Cancer Screening 1963 FIT - COLON CA SCREENING 1963 FLEX SIG - COLON CA SCREENING 1963 MAMMOGRAM 1963 Opioid Medication Agreement - Annual 1963 HIV SCREENING 1978 DTAP/TDAP/TD VACCINES (1 - Tdap) 1982 PNEUMOCOCCAL VACCINE 50+ (1 of 2 - PCV) 1982 ZOSTER VACCINE (1 of 2) 2013 PAP SMEAR 08/13/2017 08/13/2014, 02/18, 09/15/2011, Additional history exists Respiratory Syncytial Virus (RSV) Vaccine Pt: or over 60 yrs (1 - Risk 60-74 years 1-dose series) 2023 COVID-19 VACCINE ( season) 2024 01/01/2022, 01/14/2021, 12/24/2020 INFLUENZA VACCINE (#1) 2025 4, 06/22/2024, 07/16/2021, Additional history exists SCREENING FOR DIABETES 11/23/2027 5, 06/23/2024, 06/21/2024, Additional history exists LIPID TESTING 06/21/2029 06/21/2024 HEPATITIS C SCREENING Completed 07/05/2024, 021 DEPRESSION SCREENING Completed 11/27/2024, 06/27/2024, 08/02/2022, Additional history exists HEPATITIS B VACCINE Aged Out No longe r eligible based on patient's age to complete this topic HIB VACCINE Aged Out No longer eligi ble based on patient's age to complete this topic HPV VACCINE Aged Out No longer eligi ble based on patient's age to complete this topic MENINGOCOCCAL (Group B) VACCINE SHARED DECISION-MAKING Aged Out No longer eligible based on patient's age to complete this topic MENINGOCOCCAL GROUPS A/C/Y/W VACCINE Aged Out No longer eligible based on patient's age to complete this topic Goals Goal Patient Goal Type Associated Problems Recent Progress Patient-Stated? Author Medication Management General On track( 024 9:03 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) No Wendy Meeks, RN Note: Expected end date: ONGOING Interventions: Take all medications as prescribed Let your doctor know right away about any changes in your medications Make sure to request a refill of your medication at least one week prior to your last dose Medication Management General On track( 022 1:03 PM POLICE BOOKING OFFICER) No Nitza De, RN Note: Expected end date: Ongoing Interventions: Take all medications as prescribed Let your doctor know right away about any changes in your medications Make sure to request a refill of your medication at least one week prior to your last dose Procedures Procedure Name Priority Date/Time Associated Diagnosis Comments COMPREHENSIVE METABOLIC PANEL 11/22/2024 10:46 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 HEPATITIS C AB W/RFLX TO HCV RNA QN PCR Routine 03/02/2021 12:05 PM CDT Encounter for HCV screening test for low risk patient PAP IMAGE-GUIDED W HPV Routine 12:00 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 from Last 3 Months or Most Recently Relevant to Health Maintenance Results * COMPREHENSIVE METABOLIC PANEL (11/22/2024 10:46 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) Glucose 88 65 - 139 mg/dL [facility] Comment: Non-fasting reference interval BUN 22 7 - 25 mg/dL [facility] Creatinine 1.03 0.50 - 1.05 mg/dL [facility] eGFR by Cystatin C 62 > OR = 60 mL/min/1. 73m2 [facility] BUN/Creatinine Ratio SEE NOTE: 6 - 22 (calc) [facility] Comment: Not Reported: BUN and Creatinine are within reference range. Sodium 140 135 - 146 mmol/L [facility] Potassium 4.4 3.5 - 5.3 mmol/L [facility] Chloride 102 98 - 110 mmol/L [facility] CO2 32 20 - 32 mmol/L [facility] Calcium 9.7 8.6 - 10.4 mg/dL [facility] Protein Total 6.7 6.1 - 8.1 g/dL [facility] Albumin 4.5 3.6 - 5.1 g/dL [facility] Globulin Total 2.2 1.9 - 3.7 g/dL (calc) [facility] Albumin/Globulin Ratio 2.0 1.0 - 2.5 (calc) [facility] Bilirubin Total 0.4 0.2 - 1.2 mg/dL [facility] Alkaline Phosphatase 53 37 - 153 U/L [facility] AST 15 10 - 35 U/L [facility] ALT 13 6 - 29 U/L [facility] Comment: Test Performed at: [facility] [address] [place] [address] NUPUR VAZQUEZ MD 11/22/2024 10:4 6 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 11/22/2024 10:47 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 us Miya Patel MD LAB - CHEMISTRY OFELIA BOOKER Final Result [facility] [id number] [place] [address] * HEPATITIS C AB W/RFLX TO HCV RNA QN PCR (03/02/2021 12:05 PM CDT) Hepatitis C Antibody NON-REACTI VE NON-REACT [facility] Signal to Cut-Off 0.00 <1.00 [facility] Comment: HCV antibody was non-reactive. There is no laboratory evidence of HCV infection. In most cases, no further action is required. However, if recent HCV exposure is suspected, a test for HCV RNA (test code 60457) is suggested. For additional information please refer to http://education.[employer]/faq/DPH76t2 (This link is being provided for informational/ educational purposes only.) Test Performed at: [facility] [address] [place] [address] MONIQUE BERNAL DO,MPH Blood BLOOD SPECIMEN / Unknown 03/02/2021 12:05 PM CDT 03/02/2021 12:06 PM CDT Maria Alejandra Galeana MD LAB - CHEMISTRY ORDERABLES Fi nal Result Performing Organization Address City/[facility]/ZIP Co de Phone Number [facility] [address] [place] [address] * PAP IMAGE-GUIDED LIQUID BASE W HPV (08/13/2014 12:00 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) Pathologist [facility] Pap Image-Guided Liquid-Based with HPV Specimen:Endocervi nori ThinPrep Slides:1 SPECIMEN ADEQUACY: SATISFACTORY FOR EVALUATION - No Endocervical / Transformation Zone Component Present INTERPRETATION: NEGATIVE FOR INTRAEPITHELIAL LESION OR MALIGNANCY NOTE(S): HPV DIRECT - HPV Result to Follow This specimen was evaluated by the ThinPrep Imaging System along with an additional manual rescreening by a photovoltaic panel installer and/or pathologist Interpretation performed by Janine SHEEHAN(ASCP). Electronically signed 08/23/2014 [facility] ([facility]) Endocervical 08/13/2014 08/14/2014 Tee Frazier MD LAB - PATHOLOGY/CYTOLOGY OR DERABLES Final Result [facility] ([facility]) from Last 3 Months or Most Recently Relevant to Health Maintenance Insurance ANTHEM ANTHEM ANTHEM Care Teams Movie Theater Manager Relationship Specialty Start Date End Date Sid Ortiz MD PCP - General 10/12/21 Adolfo Llanes MD Orthopedic Surgery 11/16/21
--- OUTSIDE RECORDS SUMMARY | 2025-04-23 14:10 | XMS_ITS | Clinical Summary ---
Author Organization [facility] Address [address] [place] [address] Phone Care Team Providers Care Parts Department Supervisor Name Role Phone Sid Ortiz Primary Care Provider [phone] Richy Del Rio DO Unavailable [phone] Allergies Active Allergy Reactions Criticality Noted Date Comments Sulfa Antibiotics Unknown 01/26/2016 Medications montelukast (SINGULAIR) 10 MG Tablet Take 10 mg by mouth daily. Active buPROPion (WELLBUTRIN) 300 MG TABLET SR 24 HR XL tablet Take 300 mg by mouth every morning. Active Hydroxychloroqu ine Sulfate (PLAQUENIL PO) Take by mouth daily. Active desloratadine (CLARINEX) 5 MG Tablet Take 5 mg by mouth daily. Active levothyroxine (SYNTHROID) 125 MCG Tablet Take 125 mcg by mouth daily. Active CycloSPORINE (RESTASIS OP) Place in affected eye(s) 2 times daily. Active albuterol (PROVENTIL HFA, VENTOLIN HFA) 108 (90 BASE) MCG/ACT Aerosol Solution take 2 Puffs by inhalation every 4 hours as needed for Wheezing. Active estrogens, conjugated, (PREMARIN) 1.25 MG Tablet Take 1.25 mg by mouth. Active omeprazole (PRILOSEC) 40 MG CAPSULE DELAYED RELEASE TAKE 1 CAPSULE TWICE A DAY 180 Cap 3 9 Active hyoscyamine (ANASPAZ, LEVSIN) 0.125 MG TabletIndicatio ns:Chronic constipation,Ge neralized abdominal pain May use 1-2 tabs every 4-6 hours up to max 1.5 mg per day as needed for abd pain 180 Tab 0 Active Active Problems Problem Noted Date Diagnosed Date Chronic constipation 03/11/2020 Chronic pain syndrome 07/09/2016 Somatic symptom disorder, pe rsistent, severe, with predominant pain 07/09/2016 Family History Medical History Relation Name Comments Heart Disease Father Prostate Cancer Father Hypertension Mother Other-comment Mother Amyloidosis Relation Name Status Comments Father Alive Mother Alive Social History Tobacco Use Types Packs/Day Years Used Date Smoking Tobacco: Never Smokeless Tobacco: Never Tobacco Cessation:Counseling Given: No Alcohol Use Standard Drinks/Week Comments Yes 2 (1 standard drink = 0.6 oz pur e alcohol) Sexually Active Control Partners Comments Never Comments No Sex and Gender Information Value Date Recorded Sex Assigned at Not on file Legal 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 Gender Identity Not on file Sexual Orientation Not on file Last Filed Vital Signs Vital Sign Reading Time Taken Comments Blood Pressure 112/76 03/11/2020 9:00 AM CDT Pulse 64 03/11/2020 9:00 AM CDT Temperature 37.2 C (98.9 F) 03/11/2020 9:00 AM CDT Respiratory Rate 16 03/11/2020 9:00 AM CDT Oxygen Saturation 95% 03/11/2020 9:00 AM CDT Inhaled Oxygen Concentration - - Weight 58.5 kg (129 lb) 03/11/2020 9:00 AM CDT Height 160 cm (5' 3) 03/11/2020 9:00 AM CDT Body Mass Index 22.85 03/11/2020 9:00 AM CDT Plan of Treatment Health Maintenance Due Date Last Done Comments Hepatitis C Virus (HCV) Screening 1965 TdaP Immunization 1965 Zoster Immunization (1 of 2) 1982 Cologuard 02/21/2008 Immunochemical Fecal Occult Blood 02/21/2008 Pneumococcal Immunization (5 0+ years) (1 of 1 - PCV) 2013 Respiratory Syncytial Virus (RSV) Immunization (Adult) (1 - Risk 60-74 years 1-dose series) 2023 Colonoscopy 04/17/2023 04/17/2018, 11/22/2011 Colorectal Cancer Screening 04/17/2023 SARS-COV-2 Immunization ( season) 2024 01/01/2022, 01/15/2021, 12/20/2020 Influenza Immunization (#1) 2025 08/29/2015 Hepatitis B Immunization Aged Out No longer eligible based on patient's age to complete this topic Human Papillomavirus (HPV) Immunization Aged Out No longer eligible b ased on patient's age to complete this topic Meningococcal Immunization (ACWY) Aged Out No longer eligible b ased on patient's age to complete this topic Rotavirus Immunization Aged Out No lo nger eligible based on patient's age to complete this topic Procedures Procedure Name Priority Date/Time Associated Diagnosis Comments COLONOSCOPY Routine 04/17/2018 from Last 3 Months or Most Recently Relevant to Health Maintenance Results * COLONOSCOPY (04/17/2018) Richy Del Rio DO PROCEDURE/MINOR SURGICAL ORDERA BLES Final Result from Last 3 Months or Most Recently Relevant to Health Maintenance Insurance [facility] Care Teams Parts Department Supervisor Relationship Specialty Start Date End Date Sid Ortiz [address] [id number] PCP - General Family Medicine 12/01/15 Richy Del Rio DO [address] [id number] Gastroenterology 01/28/16
--- OUTSIDE RECORDS SUMMARY | 2025-04-23 14:11 | XMS_ITS | Patient Health Record ---
Author Organization [facility] Address [address] [place] [address] Care Team Providers Care Sales And Service Associate Name Role Phone Aaa, Provider Primary Care Provider UnavailAquiles Garcia Unavailable [phone] René Osborne Unavailable Unavailable Case, Daneromina Unavailable [phone] Allergies Allergen (clinical drug ingredient) Drug/Non Drug Allergy documented on EMR Reaction Allergy Type Onset Date Status Substance with sulfonamide structure and antibacterial mechanism of action (substance) Sulfa Antibiotics rash Drug Allergy Active Results Component Value Reference Range Notes COMPREHENSIVE METABOLIC PANE L-[facility] Reviewed date:02/04/2025 08:19:05 AM Interpretation: Performing Lab: Notes/Report: Items were attached to this order: PROGRAM DEVELOPMENT MANAGER Testing performed at: [facility], [address] [place], [address], Rn Circulating: NUPUR VAZQUEZ MD GLUCOSE 95 65-99 mg/dL Fasting reference interval UREA NITROGEN (BUN) 21 7-25 mg/dL CREATININE 1.17 0.50-1.05 mg/dL EGFR 53 > OR = 60 mL/min/1.73m2 BUN/CREATININE RATIO 18 6-22 (calc) SODIUM 137 135-146 mmol/L POTASSIUM 4.5 3.5-5.3 mmol/L CHLORIDE 100 98-110 mmol/L CARBON DIOXIDE 34 20-32 mmol/L CALCIUM 9.4 8.6-10.4 mg/dL PROTEIN, TOTAL 6.4 6.1-8.1 g/dL ALBUMIN 4.4 3.6-5.1 g/dL GLOBULIN 2.0 1.9-3.7 g/dL (calc) ALBUMIN/GLOBULIN RATIO 2.2 1.0-2.5 (calc) BILIRUBIN, TOTAL 0.4 0.2-1.2 mg/dL ALKALINE PHOSPHATASE 51 37-153 U/L AST 17 10-35 U/L ALT 18 6-29 U/L Free T3 [facility] Reviewed date:02/04/2025 08:19:05 AM Interpretation: Performing Lab: Notes/Report: Items were attached to this order: PROGRAM DEVELOPMENT MANAGER Testing performed at: [facility], [address] [place], [address], Rn Circulating: NUPUR VAZQUEZ MD T3, FREE 3.2 2.3-4.2 pg/mL Ferritin, [employer] ([employer]) Reviewed date:02/04/2025 08:19:05 AM Interpretation: Performing Lab: Notes/Report: Items were attached to this order: PROGRAM DEVELOPMENT MANAGER Testing performed at: [facility], [address] [place] [address], [phone], Rn Circulating: NUPUR VAZQUEZ MD FERRITIN 26 16-288 ng/mL COMPREHENSIVE BLOOD COUNT-[facility] Reviewed date:02/04/2025 08:19:05 AM Interpretation: Performing Lab: Notes/Report: Items were attached to this order: PROGRAM DEVELOPMENT MANAGER Testing performed at: [facility], [address] [place] [address], [phone], Rn Circulating: NUPUR VAZQUEZ MD WHITE BLOOD CELL COUNT 4.7 3.8-10.8 Thousand/ uL RED BLOOD CELL COUNT 4.10 3.80-5.10 Million/uL HEMOGLOBIN 12.5 11.7-15.5 g/dL HEMATOCRIT 38.1 35.0-45.0 % MCV 92.9 80.0-100.0 fL MCH 30.5 27.0-33.0 pg MCHC 32.8 32.0-36.0 g/dL For adults, a slight decrease in the calculated MCHC value (in the range of 30 to 32 g/dL) is most likely not clinically significant; however, it should be interpreted with caution in correlation with other red cell parameters and the patient's clinical condition. RDW 13.0 11.0-15.0 % PLATELET COUNT 195 140-400 Thousand/uL MPV 10.5 7.5-12.5 fL ABSOLUTE NEUTROPHILS 2421 3551-0194 cells/uL ABSOLUTE LYMPHOCYTES 2951 100-8805 cells/uL ABSOLUTE MONOCYTES 390 200-950 cells/uL ABSOLUTE EOSINOPHILS 179 15-500 cells/uL ABSOLUTE BASOPHILS 28 0-200 cells/uL NEUTROPHILS 51.5 LYMPHOCYTES 35.8 MONOCYTES 8.3 EOSINOPHILS 3.8 BASOPHILS 0.6 TSH-QUEST Reviewed date:02/04/2025 08:19:05 AM Interpretation: Performing Lab: Notes/Report: Items were attached to this order: PROGRAM DEVELOPMENT MANAGER Testing performed at: [facility], [address] [facility], [place], [address], Rn Circulating: NUPUR VAZQUEZ MD TSH 0.28 0.40-4.50 mIU/L Reason For Referral No Information Medications Medication SIG (Take, Route, Frequency, Duration) Notes Start Date End Date Status Fluticasone Propionate 50 MCG/ACT 1 spray in each nostril Externally Once a day Active Hydroxychloroquine Sulfate 200 MG 1 1/2 tab Orally daily Active Desloratadine 5 MG 1 tablet Orally Once a day Active Desvenlafaxine ER 50 MG 1 tablet Orally Once a day Active Montelukast Sodium 10 MG as directed Ora lly Once a day Active Omeprazole 20 MG 1 tab Orally two times daily Active Levothyroxine Sodium 100 MCG 1 tablet in the morning on an empty stomach Orally Once a day for 90 days Active Spironolactone 100 MG 1 tablet Orally On ce a day Not-Taking Lisinopril 10 MG 1 tablet Orally Once a day Active Vilazodone HCl 10 MG 1 tablet with food Orally Once a day Not-Taking Estradiol 0.1 MG/GM as directed Vaginal Two times a Week Active Imvexxy Maintenance Pack 10 MCG 1 _insert Vaginal two times weekly Not-Taking Vitamin D Active Wellbutrin SR 150 MG 1 tablet in the morning Orally Once a day Active Pregabalin 50 MG 1 capsule Orally Twice a day Not-Taking Liothyronine Sodium 5 MCG 1 tablet on an empty stomach Orally TWO TIMES A DAY for 90 days Not-Taking Phentermine HCl 15 MG TAKE 1 CAPSULE BY MOUTH EVERY DAY for 90 01/19/2024 Not-Taking Zepbound 5 MG/0.5ML 0.5 mL Subcutaneous Active buPROPion HCl ER (XL) 150 MG 1 tablet in the morning Orally Once a day Active Social History Tobacco Use: Social History Observation Description Date Details (start date - stop date) Never Smoker NA - NA Tobacco Use/Smoking Question Answer Notes Are you a: never smoker Problems Problem Type SNOMED Code ICD Code Onset Dates Problem Status W/U Status Risk Notes Problem Impingement syndrome of shoulder region (588428881) SUBACROMIAL IMPINGEMENT OF RIGHT SHOULDER (M75.41) Active confirmed Problem Hypothyroidism (72299245) HYPOTHYROID (244.9) (E03.9) Active confirmed Problem Tear of right rotator cuff (68003213572368552 ) RIGHT ROTATOR CUFF TEAR (M75.101) Active confirmed Problem Localized, primary osteoarthritis of the shoulder region (641864367) PRIMARY OSTEOARTHRITIS OF RIGHT SHOULDER (M19.011) Active confirmed Problem [id number] LEFT CARPAL TUNNEL SYNDROME (G56.02) Active confirmed Vital Signs Heart Rate 80 /min 02/01/2025 Blood pressure diastolic 80 mm Hg 02/01/2025 Oximetry 99 % 02/01/2025 Weight-kg 60.33 kg 02/01/2025 Height 63 in 02/01/2025 Blood pressure systolic 110 mm Hg 02/01/2025 Weight 133 lbs 02/01/2025 BMI 23.56 kg/m2 02/01/2025 Encounters Encounter Location Date Provider Diagnosis [facility] [address] [place] [id number] 08/02/2024 Kwadwo Case HYPOTHYROID (244.9) E03.9 [facility] [address] [place] [address] [id number] 02/01/2025 Kwadwo Case HYPOTHYROID (244.9) E03.9 Assessments Encounter Date Diagnosis (ICD Code) Assessment Notes Treatment Notes Treatment Clinical Notes Section Notes 08/02/2024 HYPOTHYROID (244.9) (ICD-10 - E03.9) long standing hypothroidism has lupus neprhitisi now flucutating thryoid level 245.2 trial of T3 with armour but low L therefor T4+T3 dsicussed compliance solo from other meds/food follows low gluten diet 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 will weight gain/overweight, NOW medication 08/11 add labs for diffuse pain after illness AND NOW IMPROVED 02/01/2025 HYPOTHYROID (244.9) (ICD-10 - E03.9) long standing hypothroidism has lupus neprhitisi now flucutating thryoid level 245.2 trial of T3 with armour but low L therefor T4+T3 dsicussed compliance solo from other meds/food follows low gluten diet 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 will weight gain/overweight, NOW medication 08/11 add labs for diffuse pain after illness AND NOW IMPROVED Plan Of Treatment Pending Test Test Name Order Date ORTHO SHOULDER RIGHT 2 VIEW - [id number] 07/20 CBC (Complete Blood Count) 01/28/2023 T3 Free 01/28/2023 TSH 01/28/2023 CBC (Complete Blood Count) 07/22/2023 CMP (Comprehensive Metabolic Panel) 11/2022 TSH 07/22/2023 VITAMIN D 25-HYDROXY TOTAL 07/22/2023 Future Test Test Name Order Date T3 Free 01/19/2024 TSH 01/19/2024 CBC (Complete Blood Count) 02/01/2025 CMP (Comprehensive Metabolic Panel) 01/17 IRON 02/01/2025 T3 Free 02/01/2025 TSH 02/01/2025 Next Appt Details Provider Name:Kwadwo Patton, 08/09/2025 08:00:00 AM, [address] [place], [place], [phone], Insurance Providers Payer Name Payer Address Payer Phone Subscriber Number Group Number Insured Name Patient Relationship to Insured Coverage Start Date Coverage End Date [employer] [address] [place] [phone] [id number] BRIGIDA WHITE Self - patient is the insured ASC [employer] [address] [place] [phone] [id number] BRIGIDA HODGE Self - patient is the insured Medications Administered Medication Instructions Date of Administration Dosage Notes Kenalog 40mg 04/23/2022 80 mg Kenalog 07/14/2022 80 mg zzDepo-Medrol 80mg (Drain/In j Major Joint/Bursa) 07/29/2021 80 mg Medical (General) History Medical History History ICD Code asthma hypothyroidism gerd LUPUS NEUROPATHY HYPERTENSION Surgical History Surgery Date(Month/Year) RIGHT CARPAL TUNNEL RELEASE HYSTERECTOMY SPINAL CORD STIMULATOR
--- OUTSIDE RECORDS SUMMARY | 2025-04-23 14:11 | XMS_ITS | Continuity of Care Document ---
Author Name [facility] Address [address] [place] [address] Organization [facility] Care Team Providers Care Grades 9 12 Tutor Name Role Phone [facility] Unavailable Unavailable Problems Problem Status Onset Date Problem Type Date of Resolution Comme nts Source Urinary tract infectious disease (disorder) Active Condition Problem Condition Allergies, Adverse Reactions, Alerts Substance Category Reaction Severity Reaction type Status Date Reported Comments Source sulfa drugs Assertion Rash Mild Drug allergy Active [facility]
== END 2025-04-23 14:00 | disposition home or self-care (01) ==
LOC: ANHIMG 14:02
PROVIDERS: Visit Provider Nurse Practitioner
DX: Z12.31 Encounter for screening mammogram for malignant neoplasm of breast (principal)
CPT/HCPCS: 77063; 77067

== ENCOUNTER 2025-07-05 15:38 | Outpatient (CLI) | payer BC, SELFPAY ==
--- OUTSIDE RECORDS SUMMARY | 2009-12-15 08:15 | XMS_ITS | Continuity of Care Document ---
Author Organization [facility] Address [address] [facility] [address] [place] [address] Phone Care Team Providers Care Real Estate Sales Associate Name Role Phone Den Danielson Unavailable Unavailable Procedures Procedure Date Visual Field Examination(s) Office/outpatient Visit, Est Office/outpatient Visit, New Advance Directives Directive Yes / No Effective Date File Name No Information Encounters Encounter Description Practice Location Reason(s) For Visit Diagnoses Date Provider Providers Copied on Encounter [facility], [id number] [place] [address] [address], [place], [place], [id number], [place] tel:[phone] [facility] No Information Nov- 0 Jagjit Den. [facility] [address], [facility], [place]. tel:[phone] Referring Provider: Den schmid, [address] [place] [address], [facility]. tel:[phone] Office/outpat ient Visit, Est [facility], [address] [place] [address] [address], [place], [place], [id number], [place] tel:[phone] [facility] No Information Nov-10 23-201 0 Donatoamy Den. [address] [address], [place], [place], [facility], [place]. tel:[phone] Office/outpat ient Visit, New [facility], [address] [place] [address] [address], [place], [place], [id number], [place] tel:[phone] [facility] No Information Mar-0 5-201 0 Jagjit Crenshaw. [address] [employer] [facility] [place] [address], [place], [address], [place]. tel:[phone] Referring Provider: Sid Ortiz MD, [address] [place] [address], [address]. tel:[phone] Family History Family Member Type Diagnosis Age At Onset No Information Payers Payer name Insurance type Covered constitution party ID Authoriza tion(s) No Information Social History Type Description Quantity Date Captured Comments Sex Female Smoking Status No Information Chief Complaint And Reason For Visit No Information Reason For Referral Reason For Referral No Information History Of Present Illness Encounter Date Complaint History Of Prese nt Illness No Information Functional Status Date Functional Assessmen t No Information Instructions Date Instruction Additional Infor mation No Information Assessments Type Assessment Date No Information Patient Care Teams Name Effective Dates (start - stop) Status Members No Information
--- OUTSIDE RECORDS SUMMARY | 2025-01-31 03:30 | XMS_ITS ---
Author Organization [facility] Address [address] [place] [id number] Care Team Providers Care Maintenance Service Dispatcher Name Role Phone Aaa, Provider Primary Care Provider Aquiles James Unavailable [phone] René Osborne Unavailable Unavailable Case, Kwadwo Unavailable [phone] REASON FOR VISIT 6 month Encounters Encounter Location Date Provider Diagnosis [facility] [address] [place] [id number] 01/31/2025 Kwadwo Patton Plan Of Treatment Next Appt Details Provider Name:Deannader Patton, 08/09/2025 08:00:00 AM, [address] [place], [place], [id number], Progress Notes * AICHA WHITEOB:1965 (60 yo F)Acc No.[id number]:01/31/2025 UNLOCKED PROGRESS NOTE Progress Notes Patient: BRIGIDA ELLISON Provider: Elmo Patton MD :1965 A ge:59 Y S ex:Female Date:01/31/2025 Address:[facility] [address], [place], [id number] Pcp:Provider Aaa Subjective: * Chief Complaints: * 1 . 6 month. * Medical History: Objective: * Vitals: Assessment: Plan: * Treatment: * * * Electronic signature of Jake Patton MD, [id number] on 07/05/2025 at 03:43 PM CDT Sign off status: Pending * Provider: Elmo Patton MD Date: 0 01/31/2025 Generated for Jose sellers/Presley/Kristian on: 1 03:43 PM CDT
--- OUTSIDE RECORDS SUMMARY | 2025-02-12 08:49 | XMS_ITS | Continuity of Care Document ---
Author Organization [facility] Address [address] [place] [address] Phone Care Team Providers Care Monorail Helper Name Role Phone Brady Rivas MD Unavailable Unavailable Allergies, Adverse Reactions, Alerts Substance Reaction Status Criticality Sulfa (Sulfonamide Antibiotics) rash Active No Information Medications Medication Instructions Dosage Effective Dates (start - stop) Status Comments desloratadine 5 mg tablet TAKE 1 TABLET DAILY - Active mometasone 0.1 % topical ointment apply by topical route every day a thin layer to the affected area(s) 0.00 - Active Airsupra 90 mcg-80 mcg/actuation HFA aerosol inhaler inhale 2 puff every 4-6 hours as needed - Active 90 days supplyBIN: [id number]: [id number] 6ID: [id number]: [id number]: [id number] montelukast 10 mg tablet TAKE 1 TABLET DAILY IN THE EVENING - Active albuterol sulfate HFA 90 mcg/actuation aerosol inhaler inhale 2 puff by inhalation route every 4 - 6 hours as needed 180 MCG - Active fluticasone propionate 50 mcg/actuation nasal spray,suspension USE 2 SPRAYS IN EACH NOSTRIL DAILY - Active Pataday Once Daily Relief 0.7 % eye drops instill 1 drop by ophthalmic route every day into affected eye(s) 1.00 drop - Active PRILOSEC OTC (unknown strength) take 1 tablet twice a day as prescribed Not Available - Active SPIRONOLACTONE (unknown strength) take 2 tablet by oral route every day Not Available - Active lisinopril 10 mg tablet take 1 tablet by oral route every day 10 MG - Active bupropion HCl XL 150 mg 24 hr tablet, extended release take 1 tablet by oral route every day 150 MG - Active desvenlafaxine succinate ER 50 mg tablet,extended release 24 hr take 1 tablet by oral route every day 50 MG - Active pregabalin 50 mg capsule take 1 capsule by oral route 3 times every day 50 MG - Active loteprednol etabonate 0.5 % eye drops,suspension instill 1 drop by ophthalmic route 4 times every day into affected eye(s) 1.00 drop - Active Synthroid 137 mcg tablet take 1 tablet by oral route every day 137 MCG - Active VITAMIN D3 (unknown strength) Not Available - Active metronidazole 500 mg tablet take 2 tablet by oral route once a day as prescribed - Active LINZESS (unknown strength) Not Available - Active Restasis 0.05 % eye drops in a dropperette - Active Plaquenil 200 mg tablet take 1.5 tablet by oral route every day 300 MG - Active desloratadine 5 mg tablet TAKE 1 TABLET DAILY - No Longer Active Procedures Procedure Date HEALTH RISK ASSESSMENT, PATIENT-FOCUSED OFFICE [id number] BODY MASS INDEX [facility] MOUTHPIECE SPIROMETRY BEFORE & AFTER BRONCHODIALATO R HEALTH RISK ASSESSMENT, PATIENT-FOCUSED OFFICE [id number] BODY MASS INDEX [facility] SYST BP LT 130 MM HG DIAST BP < 80 MM HG HEALTH RISK ASSESSMENT, PATIENT-FOCUSED OFFICE [id number] BODY MASS INDEX DOCD SYST BP LT 130 MM HG DIAST BP < 80 MM HG HEALTH RISK ASSESSMENT, PATIENT-FOCUSED OFFICE [id number] BODY MASS INDEX DOCD SYST BP LT 130 MM HG DIAST BP < 80 MM HG HEALTH RISK ASSESSMENT, PATIENT-FOCUSED OFFICE [id number] BODY MASS INDEX DOCD SYST BP LT 130 MM HG DIAST BP < 80 MM HG Advance Directives Directive Yes / No Effective Date File Name No Information Encounters Encounter Description Practice Location Reason(s) For Visit Diagnoses Date Provider Providers Copied on Encounter [facility], [address], [place], [place], [id number] , tel: [phone] [facility] Asthma Allergy [place] No Information 5 [facility]. [address] [facility], [address], [id number] , . tel: [phone] OFFICE [id number] TAILED [facility], [address], [place], [place], [id number] , tel: [phone] [facility] Asthma Allergy [place] Asthma & Allergies (chief complaint) Mild persistent asthma, uncomplicatedAllerg ic rhinitis due to pollenAllergic rhinitis due to house dust miteAllergic rhinitis due to animal (cat) (dog) hair and danderEczema, unspecified type 4 [facility] [address], [id number] , . tel: [phone] Referring Provider: Cande Dudley, [address] [place] [address], [address]. tel:[phone] OFFICE [id number] TAILED [facility], [address], [place], [place], [id number] , tel: [phone] [facility] Asthma Allergy [place] asthma (chief complaint) inhalant allergy (chief complaint) GERD (chief complaint) Allergic rhinitis due to pollenAllergic rhinitis due to Sammarinese house dust miteAllergic rhinitis due to cat hairAcute atopic conjunctivitis, bilateralGastroesop hageal reflux disease, unspecified whether esophagitis presentMild persistent asthma, uncomplicated 3 Sesar Cassidy. [address], [id number] , . tel: [phone] Referring Provider: Khanh Kaba, [address] [place] [address], [address] . tel:[phone] OFFICE [id number] TAILED [facility], [address], [place], [place], [id number] , tel: [phone] [facility] Asthma Allergy [place] asthma (chief complaint) asthma-con trol (chief complaint) allergy f/u (chief complaint) GERD (chief complaint) Mild intermittent asthma, uncomplicatedAllerg ic rhinitis due to pollenAllergic rhinitis due to Sammarinese house dust miteAllergic rhinitis due to cat hairAcute atopic conjunctivitis, bilateralGastroesop hageal reflux disease, unspecified whether esophagitis present January-0 2 Sesar Cassidy. [address] [place] [address], [id number] , . tel: [phone] Referring Provider: Khanh Kaba, [address] [place] [address], [address] . tel:[phone] OFFICE [id number] TAILED [facility], [address], [place], [place], [id number] , [place] tel: [phone] [facility] Asthma Allergy [place] asthma (chief complaint) allergies (chief complaint) GERD (chief complaint) Asthma-con trol (chief complaint) Mild intermittent asthma, uncomplicatedAllerg ic rhinitis due to pollenAllergic rhinitis due to Sammarinese house dust miteAllergic rhinitis due to cat hairAcute atopic conjunctivitis, bilateral Mar-1 1 Sesar Cassidy. [address], [id number] , . tel: [phone] Referring Provider: Sid Ortiz MD, [address], [place], [address]. tel:[phone] OFFICE [id number] TAILED [facility], [address], [place], [place], [id number] , [place] tel: [phone] [facility] Asthma Allergy [place] asthma (chief complaint) Asthma-con trol (chief complaint) allergies (chief complaint) GERD (chief complaint) Mild persistent asthma, uncomplicatedAllerg ic rhinitis due to pollenAllergic rhinitis due to Sammarinese house dust miteAllergic rhinitis due to cat hairAcute atopic conjunctivitis, bilateral Oct-10 23- 0 Sesar Cassidy. [address] [place] [address], [address], [id number] , . tel: [phone] Referring Provider: Khanh Kaba, [address] [place] [address], [address] . tel:[phone] [facility], [address], [place], [place], [id number] , [place] tel: [phone] [place] [facility] Mild persistent asthma, uncomplicatedAllerg ic rhinitis due to pollenAllergic rhinitis due to Sammarinese house dust miteAllergic rhinitis due to cat hairAcute atopic conjunctivitis, bilateralBody mass index (BMI) 23.0-23.9, adultMarietta Osteopathic Clinicer for exam of blood pressure w/o abnormal findings 9 Alexander Colon . [address] [place] [address], [address], [id number] , . tel: [phone] Referring Provider: Khanh Kaba, [address] [place] [address], [address] . tel:[phone] [facility], [address], [place], [place], [id number] , [place] tel: [phone] [place] [facility] Mild persistent asthma, uncomplicatedAllerg ic rhinitis due to Sammarinese house dust miteAllergic rhinitis due to pollenAllergic rhinitis due to cat hairAcute atopic conjunctivitis, bilateral 8 Sesar Cassidy. [address] [facility], [address], [id number] , [place]. tel: [phone] Referring Provider: Sid Ortiz MD, [address], [place], [address]. tel:[phone] [facility], [address], [place], [place], [id number] , [place] tel: [phone] [place] [facility] Mild persistent asthma, uncomplicatedAllerg ic rhinitis due to pollenAllergic rhinitis due to Sammarinese house dust miteAllergic rhinitis due to cat hairAcute atopic conjunctivitis, bilateral Dec-2 6 Sesar Cassidy. [address] [facility], [address], [id number] , . tel: [phone] Referring Provider: Sid Ortiz MD, [address] [place] [address] [address], [facility]. tel:[phone] [facility], [address], [place], [place], [id number] , tel: [phone] [facility] [place] [facility] Mild persistent asthma, uncomplicatedAllerg ic rhinitis due to pollenAllergic rhinitis due to Sammarinese house dust miteAllergic rhinitis due to cat hairAcute atopic conjunctivitis, bilateral Dec-0 5 Sesar Cassidy. [address] [facility], [address], [id number] , . tel: [phone] Referring Provider: Sid Ortiz MD, [address] [place] [address] [place] [address], [facility]. tel:[phone] [facility], [address], [place], [place], [id number] , tel: [phone] [facility] INTRINSIC ASTHMA, UNSPECIFIEDAllergic rhinitis due to other allergenAcute atopic conjunctivitis Nick-0 5 Sesar Cassidy. [address] [place] [address], [id number] , . tel: [phone] Referring Provider: Sid Ortiz MD, [address] [place] [address] [address], [address]. tel:[phone] [facility], [address], [place], [place], [address] , tel: [phone] [facility] INTRINSIC ASTHMA, UNSPECIFIEDAllergic rhinitis due to other allergenAcute atopic conjunctivitis Aug-0 4 Sesar Cassidy. [address], [id number] , . tel: [phone] Referring Provider: Sid Ortiz MD, [address] [facility] [address], [address]. tel:[phone] [facility], [address] [place] [address], [id number] , [place] tel: [phone] [facility] [place] [facility] INTRINSIC ASTHMA, UNSPECIFIEDAllergic rhinitis due to other allergenAcute atopic conjunctivitis 4 Sesar Cassidy. [address], [id number] , . tel: [phone] Referring Provider: Sid Ortiz MD, [address], [address]. tel:[phone] [facility], [address], [place], [place], [id number] , tel: [phone] [facility] INTRINSIC ASTHMA, UNSPECIFIEDAllergic rhinitis due to other allergenAcute atopic conjunctivitis May-2 2 Sesar Cassidy. [address], [id number] , . tel: [phone] Referring Provider: Sid Ortiz MD, [address] [facility] [address], [address]. tel:[phone] [facility], [address], [place], [place], [address] , tel: [phone] [facility] Allergic rhinitis due to other allergen 1 Sesar Cassidy. [address], [id number] , [place]. tel: [phone] Referring Provider: Sid Ortiz MD, [address] [facility] [address], [address]. tel:[phone] [facility], [address], [place], [place], [id number] , [place] tel: [phone] [facility] ALLERGIC RHINITIS NEC 6 0 Sesar Cassidy. [address], [id number] , [place]. tel: [phone] [facility], [address], [place], [place], [address] , tel: [phone] [facility] INTRINSIC ASTHMA NOSAC ATOPIC CONJUNCTIVITIS 3200 9 Sesar Cassidy. [address], [id number] , [place]. tel:[phone] Family History Family Member Type Diagnosis Age At Onset No Information Immunizations Vaccine Date Status Comments Influenza, seasonal, injectable (3 yrs or older) administered Note: Invali d documented admin date was . ; Source: Other Provider Payers Payer name Insurance type Covered republican ID Mami blair(s) [facility] ACCESS CHOICE [id number] Social History Type Description Quantity Date Captured Comments Sex Female Smoking Status No Information Chief Complaint And Reason For Visit No Information Reason For Referral Reason For Referral No Information Plan Of Treatment Date Type Action Status Appointment Grisel Smith 1 Yr BOOKED History Of Present Illness Encounter Date Complaint History Of Prese nt Illness Asthma & Allergies Grisel is a 4 1 year old seen for follow-up of his diagnosis of asthma & allergic rhinitis.Grisel is doing ok. She feels that her asthma is kicking up more this year. Her has been doing renovation and she presumes the dust is triggering it. She primarily has the asthmatic cough & she has been using her albuterol 1-2 times/week. She typically does not use it very often. She was treated for a sinus infection and COVID infection in May. She denies wheezing or shortness. She continues to take Singulair. There has been no ED visits, hospitalization or steroid bursts for asthma-related symptoms.ACT Score = 21Her allergies have not been great this year. She feels that her symptoms have been constant with drainage, congestion and red & watery. She takes Clarinex, Singulair & Flonase daily and if she feels bad she will increases Flonase to twice a day. She uses Pataday & Restasis. The family has a cat that roams the home freely.She has no complaints with her GERD and it is controlled with omeprazole 20 mg BID. She will have symptoms if she misses a dose.During the visit, Grisel complained of an itchy rash that erupted on her chest. It started out as a few pimple-like lesions that are now red and it has spread across her chest. She boarded her cat last week and she is not sure if it is from her cat. There are no other lesions on her body. She received the Flu vaccine in July at Dr. Dudley's office. She did not have any issues with the vaccine.No fevers, vomiting or diarrhea. Skin Testing - Allergens: HOUSE DUST MITES, POLLEN, CAT, and MOLD Comments: Last o ffice visit 01/18/22, and before this on 12/02/20.Sees Pulm for asthma control with normal PFTs q2 years. Normal EKGs also. Sees Rheum for SLE (Plaquenil).Continues to use Montelukast 10 mg qd for asthma.Proair MDI prn mainly with colds, rarely with exercising, and in the spring/summer outside.No nocturnal asthma exacerbations. No problems with exercise. Flu shot done this fall.COVID vaccinations x 3 onlyPneumonia 05/11 (3rd one) and needs the [id number] (Omicron) infection x 2 (10/10) (03/11).Still working from home and going in more now. Comments: Allerg ens: HOUSE DUST MITES, POLLEN, CAT, and MOLD (12/08/00). Meds: Montelukast 10 mg (as above for asthma) and Desloratadine 5 mg qd, year round.Remains on Fluticasone 1-2 puffs each nostril daily year round with good results. Using Pataday this spring and Restasis BID and LoteprednolSinusitis spring 2022.Continues to have Indoor cat x 1 (13 y/o) (with resulting ocular symptoms and sneezing)No longer with a dog though.Lots of dust at home with a renovation upstairs. Comments: On Ome prazole 20 mg BID and seems to be working well.Will know if she misses a dose especially at night. asthma inhalant allergy GERD asthma-control Grisel was seen today for asthma management. Her asthma is classified as Mild Intermittent.Since Her last visit for asthma control on 12/02/2020, She has had asthma related:-hospitalizations: NO-ER/Urgent care visits: NO-oral steroids: NO-rescue inhaler use: YES-Missed school/work: NO1. Status today: 2. Problem running/exercise/sport: 3. Cough: 4. Night wakin. #Days daytime symptoms/last weeks: 6. #Days wheezing/last 4 weeks: 7. #Days waking at night/last 4 weeks: 1. Unlimited activity: 2. Caused shortness of breath: 3. Interrupted sleep: 4. How often using rescue med: 5. Personal rating of control: The asthma is Well Controlled.Known triggers include: animals, colds and exercise.Environmental exposure/control:Smoker: NOPrevious allergy testing was on 12/08/2000. Basket Filler - Edward Blakely MD. Results - POLLEN, MOLD, CAT, HOUSE DUST MITES. allergy f/u GERD Comments: On Ome prazole 20 mg BID and seems to be working well.Will know if she misses a dose especially at night. Comments: Last o ffice visit 12/02/20 and before this on 11/12/19.Sees Pulm for asthma control with normal PFTs q2 years. Normal EKGs also. Sees Rheum for SLE (Plaquenil)Continues to use Montelukast 10 mg qd for asthmaProair MDI prn mainly with colds, rarely with exercising, and in the spring/summer outside.No nocturnal asthma exacerbations. No problems with exercise. Recent partial rotator cuff tear repair so doing physical therapy.Flu shot done last fall. Had 3 COVID vaccinations (Pfizer, Moderna). Had COVID (Omicron) 10/10. Still working from home and will likely continue to do this asthma Comments: Allerg ens: HOUSE DUST MITES, POLLEN, CAT, and MOLD (12/08/00). Continues to have Indoor cat x 1 (14 y/o) (with resulting ocular symptoms and sneezing) and dog x 1 (14 y/o) with resulting contact pruritusMontelukast 10 mg (as above for asthma) and Desloratadine 5 mg qd, year round.Restasis BID, artificial tears, and Epinastine as needed.Using Fluticasone 1-2 puffs each nostril daily year round with good results. Using Pataday this springNo sinusitis this past year. allergies (comments) Allergens: HOUSE DUST MITES, POLLEN, CAT, and MOLD (12/08/00). Continues to have Indoor cat x 1 (13 y/o) (with resulting ocular symptoms and sneezing) and dog x 1 (13 y/o) with resulting contact pruritusMontelukast 10 mg (as above for asthma) and Desloratadine 5 mg qd, year round.Restasis BID, artificial tears, and Epinastine as needed.Using Fluticasone 1-2 puffs each nostril daily the past year with good results. Only one sinusitis about a month ago and was on antibiotics with good results. Asthma-control Grisel was seen today for asthma management. Her asthma is classified as Mild Persistent.Since Her last visit for asthma control on 11/12/2019, She has had asthma related:-hospitalizations: NO-ER/Urgent care visits: NO-oral steroids: NO-rescue inhaler use: YES-Missed school/work: NOAsthma Control Test score: 241. Unlimited activity: None of the time (5)2. Caused shortness of breath: Not at all (5)3. Interrupted sleep: Once or twice (4)4. How often using rescue med: Not at all (5)5. Personal rating of control: Completely controlled (5)The asthma is Well Controlled.Known triggers include: animals, colds and exercise.Environmental exposure/control:Smoker: NOPrevious allergy testing was on 12/08/2000. Basket Filler - Edward Blakely MD. Results - POLLEN, MOLD, CAT, HOUSE DUST MITES. allergies GERD asthma (comments) Last office vi sit 11/12/19 and before this on 11/28/18See Pulm for asthma control with normal PFTs q2 years. Normal EKGs also. Rheum for SLE (Plaquenil)Continues to use Montelukast 10 mg qd Proair MDI prn mainly with colds, rarely with exercising, and in the spring/summer outside.No nocturnal asthma.Flu shot done last fall. No COVID shot yet. Works from home and will likely do this in the future too. GERD (comments) On Omeprazole 40 mg BID for past couple of years and seems to be working well. asthma asthma (comments) Last office vi sit 11/28/18 and before this on 10/12/17ee Pulm for asthma controlContinues to use Montelukast 10 mg qd Proair MDI prn mainly with colds and occ. with exercising.No nocturnal asthma.Flu shot done last fall. Asthma-control allergies GERD GERD (comments) On Omeprazole 40 mg BID for past couple of years asthma allergies (comments) Allergens: HOUSE DUST MITES, POLLEN, CAT, and MOLD (12/08/00). Continues to have Indoor cat x 1 (9 y/o) (ocular symptoms and sneezing)Montelukast 10 mg (as above for asthma) and Desloratadine 5 mg qd, year round.Restasis BID, artificial tears, and Pataday or Pazeo as neededUsing Fluticasone 1-2 puffs each nostril daily the past year with good results. No sinusitis in the interim Functional Status Date Functional Assessmen t No Information Instructions Date Instruction Additional Infor davontekimberly - Advised that the c ause of the rash is unclear and recommend treating symptomatically.- For the dermatitis, recommend mometasone ointment twice a day as needed. Related to Eczema, unspecified type - Recommend clinical ly monitoring & treating accordingly.- For the allergic rhinitis, recommend Zyrtec 10 mg once a day or Heidi 180 mg once a day & Singulair 10 mg once a day.- For the nasal congestion, recommend Nasacort 2 sprays each nostril once a day.- Advised that Zyrtec or Heidi may be increased to twice a day for high-dose therapy for break-thru allergy symptoms or a seasonal exacerbation of allergies. Related to Allergic rhinitis due to pollen - Recommend continui ng with dust mite precautions. Related to Allergic rhinitis due to house dust mite - Discussed that spi rometry showed no evidence of intrathoracic airway obstruction with an FEV1 of 2.58 L (104%) and there is no significant bronchodilatory response of 4% with a post-FEV1 of 2.68 L (109%). Lung age of <61 years. Recommend continuing with the current treatment plan with no changes and treat accordingly.- For the asthma, recommend switching to AirSupra 2 puffs every 4-6 hours as needed. - Advised that AirSupra is a newly available rescue inhaler with albuterol & budesonide to help avert a full blown exacerbation and also treat the ongoing airway inflammation. - Discussed the updated JIMI Guideline recommendation of ICS combined with GRABIEL is associated with reduced asthma exacerbations and improved asthma control compared to GRABIEL alone.- Agree with receiving the Flu vaccine. Related to Mild persistent asthma, uncomplicated - Recommend continui ng with pet dander avoidance. Related to Allergic rhinitis due to animal (cat) (dog) hair and dander Continue reflux prec autions and Omeprazole 20 mg twice daily. Related to Gastroesophageal reflux disease, unspecified whether esophagitis present Minimize cat dander exposures indoorsAvoid adding an indoor dog again. Related to Allergic rhinitis due to cat hair Continue daily Patad ay eye drops along with Restasis BID and recently some Loteprednol Related to Acute atopic conjunctivitis, bilateral Replace pillows annually Related to Allergic rhinitis due to Sammarinese house dust mite We reviewed appropri ate environmental control measures for your rhinitis.Please continue with your present nasal medications or treatment that includes above Montelukast along with Fluticasone nasal spray and Desloratadine both daily year round.Call for increasing symptoms or difficulty with medications. Refills provided or call when more are needed. Related to Allergic rhinitis due to pollen Asthma overall stabl e without daily medications. ACT = 25 Asthma is overall stable. Continue with present daily controller medication (Montelukast 10 mg once daily) unchanged. I reviewed the benefits and risks including side effects of this medication. We discussed the use of rescue medication (Albuterol). Please call for the frequent use of your rescue inhaler (beyond that discussed above) or difficulties with your asthma causing frequent night time awakeningsHad flu shot already this fall but also would recommend the PPV20 (pneumonia vaccine) given your history. Related to Mild persistent asthma, uncomplicated Medication management Continue or resume y our eye drop medication daily (Pataday eye drops twice daily) as indicated for duration of the season/exposure. If possible start your eye drop slightly before the onset of your season and continue dosing daily for best results. Call for increasing symptoms or difficulty tolerating this medication. Related to Acute atopic conjunctivitis, bilateral Continue per GI with Omeprazole 20 mg twice daily and reflux precautions. Related to Gastroesophageal reflux disease, unspecified whether esophagitis present Avoid indoor cat shreya janet as much as possible Related to Allergic rhinitis due to cat hair We reviewed appropri ate environmental control measures for your rhinitis.Please continue with your present nasal medications or treatment that includes Fluticasone and Desloratadine 5 mg once daily along with above Montelukast. Call for increasing symptoms or difficulty with medications. Refills provided or call when more are needed. Related to Allergic rhinitis due to pollen Replace bed pillows annually and discardReplace mattress every 8 years.Minimize indoor carpeting as much as possible. Lowest indoor humidity possible all year. Related to Allergic rhinitis due to [place] house dust mite Asthma is overall st able. ACT = 24.Continue with present daily controller medication (Montelukast 10 mg once daily year round) unchanged. I reviewed the benefits and risks including side effects of this medication. We discussed the use of rescue medication (Proair) and an Asthma Action Plan. Please call for the frequent use of your rescue inhaler (beyond that discussed above) or difficulties with your asthma causing frequent night time awakenings Related to Mild intermittent asthma, uncomplicated Medication management Minimize cat dander exposure when possible. Will not replace cat or dog when they pass. Related to Allergic rhinitis due to cat hair Continue or resume y our eye drop medication daily (Epinastine or an Olopatadine OTC product daily) as indicated for duration of the season/exposure. If possible start your eye drop slightly before the onset of your season and continue dosing daily for best results. Call for increasing symptoms or difficulty tolerating this medication. Related to Acute atopic conjunctivitis, bilateral Mar-16-2021 Replace and discard bed pillows annually Related to Allergic rhinitis due to [place] house dust mite We reviewed appropri ate environmental control measures for your rhinitis.Please continue with your present nasal medications or treatment that includes Montelukast above along with Desloratadine 5 mg daily, and Fluticasone nasal spray daily. Call for increasing symptoms or difficulty with medications. Refills provided or call when more are needed. Related to Allergic rhinitis due to pollen Asthma is overall st able. ACT = 24.Continue with present daily controller medication (Montelukast 10 mg once daily year round) unchanged. I reviewed the benefits and risks including side effects of this medication. We discussed the use of rescue medication (Proair) and an Asthma Action Plan. Please call for the frequent use of your rescue inhaler (beyond that discussed above) or difficulties with your asthma causing frequent night time awakenings Related to Mild intermittent asthma, uncomplicated Medication management Medication management Continue or resume y our eye drop medication daily (Pazeo, 1 drop each eye once daily especially in spring) as indicated for duration of the season/exposure. If possible start your eye drop slightly before the onset of your season and continue dosing daily for best results. Call for increasing symptoms or difficulty tolerating this medication. Related to Acute atopic conjunctivitis, bilateral We reviewed appropri ate environmental control measures for your rhinitis.Please continue with your present nasal medications or treatment that includes Fluticasone 2 puffs each nostril once daily, above Montelukast 10mg, and Desloratadine 5 mg once daily. Call for increasing symptoms or difficulty with medications. Refills provided or call when more are needed. Related to Allergic rhinitis due to pollen Replace bed pillows annually and discard. Related to Allergic rhinitis due to [place] house dust mite Would not replace cat Related to Allergic rhinitis due to cat hair Asthma is overall st able. Continue with present daily controller medication (Montelukast 10 mg once daily) unchanged. I reviewed the benefits and risks including side effects of this medication. We discussed the use of rescue medication (Proair) and an Asthma Action Plan. Please call for the frequent use of your rescue inhaler (beyond that discussed above) or difficulties with your asthma causing frequent night time awakenings Related to Mild persistent asthma, uncomplicated Medication management Assessments Type Assessment Date No Information Patient Care Teams Name Effective Dates (start - stop) Status Members No Information
--- NOTE | 2025-07-05 | ECG_ITS ---
Test Date: 2025-07-05 15:54:36 Measurements Intervals [place] Rate: 73 P: 87 LA: 344 QRS: -8 QRSD: 92 T: -77 QT: 376 QTc: 416 Interpretive Statements SINUS RHYTM SPIKES DIFFUSELY DUE TO POSSIBLE ELECTROMANETIC INTERFERENCE BASELINE ARTIFACT- I, II, III, AVR, AVL, AVF, V1-V6 ATYPICAL ECG No previous ECG available for comparison Electronically Signed On 07-05-2025 16:16:17 CDT by Donald Hagen D.O.
--- OUTSIDE RECORDS SUMMARY | 2025-07-05 15:43 | XMS_ITS | Encounter Summary ---
Author Organization [facility] Address [facility] [place] [address] Care Team Providers Care Operations Support Representative Name Role Phone Cande Dudley MD Primary Care Provider [phone] Encounter Details Date Type Department Care Team (Late st Contact Info) Description 11/27/2024 [employer] Message Enc [facility] Medical [facility] Family [facility] [address] [place] [phone] Cande Dudley MD [address] [place] [address] Persistent cough Social History Tobacco Use [...] from your doctor or pharmacy? Never 06/20/2024 [facility] Utilities Answer Date Recorded In the past 12 months has e [employer], gas, oil, or water [employer] threatened to shut off services in your [...] or ex-partner? No 06/20/2024 Social Connection and Isolation Panel Answer Date Recorded In a typical week, how many times do you talk on the phone with family, friends, or neighbors? Three times a week 06/20/2024 How often do you get togethe r with friends or relatives? Twice a week 06/20/2024 How often do you attend chur or episcopalian services? More than 4 times per year [...] Recorded Patient Health Questionnaire-2 Score 0 11/23/2024 [facility] - Occupational Stress Questionnaire Answer [...] any time in the past 12 m [facility], were you homeless or living in a custodial (including now)? 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 Answer Date of Assessment Author Status No 06/20/2024 11:00 PM Carol Long RN Active * Do you have serious [...] Care Team (Late st Contact Info) Description 12/19/2025 12:40 PM CDT Office Visit [facility] Medical Group Family Medicine [facility] [address] [place] [phone] Cande Dudley MD [address] [place] [address] documented as of this encounter Goals Goal [...] documented as of this encounter Care Teams Operations Support Representative Relationship Specialty Start Date End Date Cande Dudley MD [address] [place], [place] [phone] PCP - General FAMILY PRACTICE 06/21/24 documented as of this encounter
--- OUTSIDE RECORDS SUMMARY | 2025-07-05 15:43 | XMS_ITS | Clinical Summary ---
Author Organization [facility] Address [address] [place] [address] Phone Care Team Providers Care Outside Industrial Sales Representative Name Role Phone Sid Ortiz Primary Care Provider [phone] Richy Del Rio DO Unavailable [phone] Allergies Active Allergy Reactions Criticality Noted Date Comments Sulfa Antibiotics Unknown 01/26/2016 Medications montelukast (SINGULAIR) 10 MG Tablet Take 10 mg by mouth daily. Active buPROPion (WELLBUTRIN) 300 MG TABLET SR 24 HR XL tablet Take 150 mg by mouth every morning. Active Hydroxychloroqu ine Sulfate (PLAQUENIL PO) Take by mouth daily. Active desloratadine (CLARINEX) 5 MG Tablet Take 5 mg by mouth daily. Active levothyroxine (SYNTHROID) 125 MCG Tablet Take 100 mcg by mouth daily. Active CycloSPORINE (RESTASIS [...] A DAY 180 Cap 3 9 Active Additional Information Patient taking differently: 20 mg Oral 2 TIMES DAILY, Do not crush., Reported on 07/02/2025 hyoscyamine (ANASPAZ, LEVSIN) 0.125 MG TabletIndicatio ns:Chronic constipation,Ge neralized abdominal pain May use 1-2 tabs every 4-6 hours up to max 1.5 mg per day as needed for abd pain 180 Tab 0 Active Additional Information Patient not taking.Reported on 07/02/2025 lisinopril (PRINIVIL, ZESTRIL) 5 MG Tablet Take 5 mg by mouth daily. Active desvenlafaxine succinate (Pristiq) 50 MG TABLET SR 24 HR Take 75 mg by mouth daily. Active Wegovy 1 MG/0.5ML Solution Auto-injector 1 mg by Subcutaneous route once a week. Takes on Sundays Active Albuterol-Budes onide (Airsupra) 90-80 MCG/ACT Aerosol take 2 Puffs by inhalation every 4 hours as needed. Active estradiol (VIVELLE) 0.1 MG/24HR PATCH BIWEEKLY 1 Patch by Transdermal route twice a week. Active Active Problems Problem Noted Date Diagnosed Date Chronic constipation 03/11/2020 Chronic pain syndrome 07/09/2016 Somatic symptom disorder, pe rsistent, severe, with predominant pain 07/09/2016 Encounters Date Type Department Care Team Description 07/02/2025 Travel from Last 3 Months Family History Medical History Relation Name Comments Heart Disease Father Prostate Cancer Father Hypertension Mother Other-comment Mother Amyloidosis Relation Name Status Comments Father Alive Mother Alive Social History Tobacco Use Types Packs/Day Years Used Date Smoking Tobacco: Never Smokeless Tobacco: Never Tobacco Cessation:Counseling Given: No Alcohol Use Standard Drinks/Week Comments Yes 2 (1 standard drink = 0.6 oz pur e alcohol) a month Sexually Active Control Partners Comments Never Comments No Sex and Gender Information Value Date Recorded Sex Assigned at Not on file 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 Gender Identity Not on file Sexual Orientation Not on file Last Filed Vital Signs Vital Sign Reading Time Taken Comments Blood Pressure 112/76 03/11/2020 9:00 AM CDT Pulse 64 03/11/2020 9:00 AM CDT Temperature 37.2 C (98.9 F) 03/11/2020 9:00 AM CDT Respiratory Rate 16 03/11/2020 9:00 AM CDT Oxygen Saturation 95% 03/11/2020 9:00 AM CDT Inhaled Oxygen Concentration - - Weight 54.4 kg (120 lb) 07/02/2025 9:00 AM CDT Height 160 cm (5' 3) 07/02/2025 9:00 AM CDT Body Mass Index 21.26 07/02/2025 9:00 AM CDT Plan of Treatment Upcoming Encounters Date Type Department Care Team (Late st Contact Info) Description 07/19/2025 11:40 AM CDT Hospital Encounter [facility] [address] [place] [address] Nicole Alfonso MD [address] , [place] [address] 07/19/2025 11:40 AM CDT - 07/19/2025 1:10 PM CDT Surgery [facility] [address] [place] [address] Nicole Alfonso MD [address] , [place] [address] REMOVAL AND REPLACEMENT OF [employer] SPINAL CORD STIMULATOR-BATTERY ONLY, C-ARM, PLASMA BLADEJOSH CONF FOR 07/19@ 1200 DS 07/03 Scheduled Procedures Name Priority Associated Diagnoses Date/Ti me SPINAL CORD STIMULATOR BATTERY CHANGE SPINAL CORD STIMULATOR DYSFUNCTION 07/19/2025 11:40 AM CDT Health Maintenance Due Date Last Done Comments Hepatitis C Virus (HCV) Screening 1965 Mammogram 1965 TdaP Immunization 1963 Zoster Immunization (1 of 2) 1982 Cologuard 02/21/2008 Immunochemical Fecal Occult Blood 02/21/2008 Pneumococcal Immunization (5 0+ years) (1 of 1 - PCV) 2013 Respiratory Syncytial Virus (RSV) Immunization (Adult) (1 - Risk 60-74 years 1-dose series) 2023 Colonoscopy 04/17/2023 04/17/2018, 11/22/2011 Colorectal Cancer Screening 04/17/2023 Influenza Immunization (#1) 2025 08/29/2015 SARS-COV-2 Immunization (4 - 2025-26 season) 2025 01/01/2022, 01/15/2021, 12/20/2020 Hepatitis B Immunization Aged Out No longer [...] Recently Relevant to Health Maintenance Results * [facility] COLONOSCOPY (04/17/2018) Richy Del Rio DO PROCEDURE/MINOR SURGICAL ORDERA BLES Final Result from Last 3 Months or Most Recently Relevant to Health Maintenance Insurance [facility] Care Teams Outside Industrial Sales Representative Relationship Specialty Start Date End Date Angel Sid [address] [place] [address] PCP - General Family Medicine 12/01/15 Richy Del Rio DO [address] [address] Gastroenterology 01/28/16
--- OUTSIDE RECORDS SUMMARY | 2025-07-05 15:44 | XMS_ITS | Encounter Summary ---
Author Organization [facility] Address [address] [place] [address] Care Team Providers Care Patient Services Specialist Name Role Phone Cande Dudley MD Primary Care Provider [phone] Encounter Details Date Type Department Care Team (Latest Contact Info) Description 07/02/2025 Scan [facility] Scanned, Doc Med Group Social History Tobacco Use Types Packs/Day Years [...] from your doctor or pharmacy? Never 06/20/2024 [facility] Utilities Answer Date Recorded In the past 12 months has e [employer], gas, oil, or water [employer] threatened to shut off services in your [...] often do you attend chur ch or druze services? More than 4 times per year 06/20/2024 Do you belong to any clubs o r organizations such as mandaeism groups, unions, fraternal or athletic groups, or [...] Date Recorded Patient Health Questionnaire-2 Score 0 06/19/2025 [facility] - Occupational Stress Questionnaire Answer Date Recorded [...] any time in the past 12 m [facility], were you homeless or living in a halfway (including now)? 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 Answer Entry Date Author Status No 06/20/2024 11:00 PM CDT Carol Oreilly RN Active documented in this encounter Plan of Treatment Upcoming Encounters Date Type Department Care Team (Late st Contact Info) Description 12/19/2025 12:40 PM CDT Office Visit [facility] Medical [facility] Family [facility] [address] [place] [phone] Cande Dudley MD [address] [place] [address] documented as of this encounter Goals Goal [...] documented as of this encounter Care Teams Patient Services Specialist Relationship Specialty Start Date End Date Cande Dudley MD [address] [place] [address] PCP - General FAMILY PRACTICE 06/21/24 documented as of this encounter
--- OUTSIDE RECORDS SUMMARY | 2025-07-05 15:44 | XMS_ITS | Clinical Summary ---
Author Organization [facility] Address [address] [place] [address] Care Team Providers Care Parking Enforcement Manager Name Role Phone Sid Ortiz MD Primary Care Provider [phone] Adolfo Llanes MD Unavailable [phone] Source Comments [facility],non-owned Affiliates and Associated Physician Practices is amultiple site organization consisting of ambulatory clinics and hospital sitesin [place], [place], [place] and [place]. This disclosure is being madepursuant to the Care Everywhere program and may not contain all information available regarding this patient. Last updated 18.[facility] Allergies Active Allergy Reactions Criticality Noted Date Comments Sulfa Antibiotics Rash Medium 06/20/2024 Sulfa Drugs Rash Medium 07/26/2014 Other reaction(s): rash Medications * Be aware that medications may not be up to date on this document. Alwaysverify current medications with the patient. montelukast (SINGULAIR) 10 MG tablet Take 1 (one) tablet by mouth once daily 07/05/20 14 Active desloratadine (CLARINEX) 5 MG tablet Take 1 (one) tablet by mouth once daily 07/05/20 14 Active dimenhyDRINATE (DRAMAMINE PO) Take 25 mg by mouth once daily as needed meclazine Active vitamin D3 (CHOLECALCIFERO L) 25 MCG (1000 UNITS) tablet Take 1 (one) tablet by mouth once daily Active RESTASIS 0.05 % ophthalmic suspension 08/07/20 21 Active omeprazole (PRILOSEC) 40 MG capsuleIndicati ons:Gastro-esop hageal reflux disease without esophagitis Take 1 (one) capsule by mouth daily before breakfast 11/16/19 22 Active pregabalin (Lyrica) 50 MG capsule Take 1 (one) capsule by mouth 2 times daily 180 capsule 1 08/08/20 23 Active estradiol (Estrace) 0.1 MG/GM vaginal cream 08/04/20 23 Active fluticasone propionate (Flonase) 50 MCG/ACT nasal spray [place] 2 (two) sprays into each nostril once daily 07/13/20 23 Active levothyroxine (Synthroid) 100 MCG tablet Take 1 (one) tablet by mouth once daily 07/25/20 23 Active olopatadine 0.7 % (Pataday) 0.7 % ophthalmic solution 1 (one) drop by Ophthalmic route every 24 hours 07/13/20 23 Active buPROPion SR 12hr (Wellbutrin SR) 150 MG tablet 12/29/19 24 Active desvenlafaxine succinate ER 24hr (Pristiq) 50 MG tablet Take 1 (one) tablet by mouth once daily Active Airsupra 90-80 MCG/ACT AERO Take 2 puffs by mouth every 4 hours as needed 09/05/20 24 Active lisinopril (Prinivil; Zestril) 10 MG tablet 11/21/19 25 Active estradiol (Climara) 0.075 MG/24HR patch Apply 1 (one) patch to skin every 7 days Active Wegovy 1 MG/0.5ML pen Inject 1 (one) mg subcutaneously every 7 days (once a week) 06/04/20 25 Active hydroxychloroqu ine (Plaquenil) 200 MG tabletIndicatio ns:Systemic lupus erythematosus, unspecified SLE type, unspecified organ involvement status (HCC) TAKE 1 AND 1/2 TABLETS DAILY 135 tablet 1 06/05/20 25 Active Active Problems Problem Noted Date Diagnosed [...] Hypothyroidism 09/19/1994 Lupus Neuropathy Chronic kidney disease Encounters Date Type Department Care Team Description 06/05/2025 12:40 PM CDT Office Visit [facility] - Rheumatology [address] [place] [phone] Miya Patel MD Systemic lupus erythematosus, unspecified SLE type, unspecified organ involvement status (HCC) (Primary Dx); Encounter for long-term (current) use of high-risk medication; Encounter for therapeutic drug monitoring 06/05/2025 Travel 05/30/2025 Orders Only [facility] - Rheumatology [address] [place] [phone] Miya Patel MD from Last 3 Months Immunizations Immunization Administration Dates Next Due Tapvalue primary monoval ent 12+ yr 0.3mL Purple [...] AM CDT Legal Sex Female 7:39 AM PIN MACHINE TENDER Gender Identity Female 02/23/2021 6:53 AM CDT Sexual Orientation Not on file Last Filed Vital Signs Vital Sign Reading Time Taken Comments Blood Pressure 117/76 06/05/2025 12:50 PM CDT Pulse 81 06/05/2025 12:50 PM CDT Temperature 36.6 C (97.9 F) 11/29/2024 8:19 AM CDT Respiratory Rate 18 01/31/2023 9:45 AM CDT Oxygen Saturation 97% 06/05/2025 12:50 PM CDT Inhaled Oxygen Concentration - - Weight 57.2 kg (126 lb) 06/05/2025 12:50 PM CDT Height 160 cm (5' 3) 06/05/2025 12:50 PM CDT Body Mass Index 22.32 06/05/2025 12:50 PM CDT Plan of Treatment Upcoming Encounters Date Type Department Care Team (Late st Contact Info) Description 12/04/2025 12:40 PM CDT Office Visit [facility] - Rheumatology [address] [place] [phone] Miya Patel MD [address] [place] [address] [address] [place] [phone] 12/05/2025 8:30 AM CDT Office Visit [facility] - Nephrology [address] [place] [address] [place] [phone] Phillip Perez MD [address] [place] [address] [address] [place] [address] Health Maintenance Due Date Last Done Comments [...] 1982 ZOSTER VACCINE (1 of 2) 2013 Respiratory Syncytial Virus (RSV) Vaccine Pt: or over 60 yrs (1 - Risk 60-74 years 1-dose series) 2023 COVID-19 VACCINE ( - season) 2025 01/01/2022, 01/14/2021, 12/24/2020 INFLUENZA VACCINE (#1) 2025 , 06/22/2024, 07/16/2021, Additional history exists LIPID TESTING 06/21/2029 06/21/2024 [...] Management General On track( 024 9:03 AM PIN MACHINE TENDER) Wendy Raza, RN Note: Expected end date: ONGOING Interventions: Take all medications as prescribed Let your doctor know right away about any changes in your medications Make sure to request a refill of your medication at least one week prior to your last dose Medication Management General On track( 022 1:03 PM PIN MACHINE TENDER) No Nitza De, RN Note: Expected end date: Ongoing Interventions: Take all medications as prescribed Let your doctor know right away about any changes in your medications Make sure to request a refill of your medication at least one week prior to your last dose Procedures Procedure Name Priority Date/Time Associated Diagnosis Comments C-REACTIVE PROTEIN 05/30/2025 8: 28 AM CDT URINALYSIS W/MICROSCOPIC REFLEX TO CULTURE 05/30/2025 8:28 AM CDT CBC W AUTO DIFFERENTIAL 05/30/2025 8:28 AM CDT ERYTHROCYTE SEDIMENTATION RATE 05/30/2025 8:28 AM CDT COMPREHENSIVE METABOLIC PANEL 05/30/2025 8:28 AM CDT CULTURE URINE REFLEXED I 05/30/2025 8:28 AM CDT HEPATITIS C AB W/RFLX TO HCV RNA QN PCR Routine 03/02/2021 12:05 PM CDT Encounter for HCV screening test for low risk patient from Last 3 Months or Most Recently Relevant to Health Maintenance Results * CULTURE URINE REFLEXED I (05/30/2025 8:28 AM CDT) Reflexive Urine Culture See Below [facility] Comment: NO CULTURE INDICATED Test Performed at: [employer] [facility] [address] [place] [address] NUPUR VAZQUEZ MD 05/30/2025 8:28 AM CDT 05/30/2025 8:30 AM CDT us Miya Patel MD LAB - MICROBIOLOGY ORD ERABLES Final Result [facility] [address] [place] [address] * URINALYSIS W/MICROSCOPIC REFLEX TO CULTURE (05/30/2025 8:28 AM CDT) Color UA YELLOW YELLOW [facility] Appearance CLEAR CLEAR [facility] Specific [place] UA 1.015 1.001 - 1.035 [facility] pH UA 5.5 5.0 - 8.0 [facility] Glucose UA NEGATIVE NEGATIVE [facility] Bilirubin UA NEGATIVE NEGATIVE [facility] Ketone UA NEGATIVE NEGATIVE [facility] Blood UA NEGATIVE NEGATIVE [facility] Protein UA NEGATIVE NEGATIVE [facility] Nitrite NEGATIVE NEGATIVE [facility] Leukocyte Esterase NEGATIVE NEGATIVE [facility] WBC UA NONE SEEN < OR = 5 /HPF [facility] RBC UA NONE SEEN < OR = 2 /HPF [facility] Epithelial Cell UA 0-5 < OR = 5 /HPF [facility] Transitional Epithelial Cells [facility] Renal Epithelial Cells [facility] Bacteria UA NONE SEEN NONE SEEN /HPF [facility] Calcium Oxalate Crystals [facility] Triple Phosphate Crystals [facility] Uric Acid Crystals [facility] Amorphous UA [facility] Crystals UA [facility] Hyaline Casts NONE SEEN NONE SEEN /LPF [facility] Granular Casts [facility] Casts UA [facility] Yeast [facility] Comments [facility] Note See Below [facility] Comment: This urine was analyzed for the presence of WBC, RBC, bacteria, casts, and other formed elements. Only those elements seen were reported. Test Performed at: [employer] [place] [address] NUPUR VAZQUEZ MD 05/30/2025 8:28 AM CDT 05/30/2025 8:30 AM CDT Miya Patel MD LAB - URINALYSIS ORDER MARIANNA Final Result [facility] [address] [place] [address] * C-REACTIVE PROTEIN (05/30/2025 8:28 AM CDT) C-Reactive Protein <3.0 <8.0 mg/L [facility] Comment: Test Performed at: [employer] [place] [address] NUPUR VAZQUEZ MD 05/30/2025 8:28 AM CDT 05/30/2025 8:30 AM CDT Miya Patel MD LAB - CHEMISTRY ORDERA BLES Final Result Performing Organization Address [facility] Co de Phone Number [facility] [address] [place] [address] * ERYTHROCYTE SEDIMENTATION RATE (05/30/2025 8:28 AM CDT) Pathologist [facility] Erythrocyte Sedimentation Rate Westergren 2 < OR = 30 mm/h [facility] Comment: Test Performed at: [employer] [facility] [address] NUPUR VAZQUEZ MD 05/30/2025 8:28 AM CDT 05/30/2025 8:30 AM CDT Miya Patel MD LAB - HEMATOLOGY ORDER MARIANNA Final Result Performing Organization Address [facility] de Phone Number [facility] [address] [place] [address] * CBC WITH DIFFERENTIAL (05/30/2025 8:28 AM CDT) Pathologist [facility] White Blood Cell Count 4.5 3.8 - 10.8 Thousand/u L [facility] RBC 3.94 3.80 - 5.10 Million/uL [facility] Hemoglobin 12.3 11.7 - 15.5 g/dL [facility] Hematocrit 38.0 35.0 - 45.0 % [facility] MCV 96.4 80.0 - 100.0 fL [facility] MCH 31.2 27.0 - 33.0 pg [facility] MCHC 32.4 32.0 - 36.0 g/dL [facility] Comment: For adults, a slight decrease in the calculated MCHC value (in the range of 30 to 32 g/dL) is most likely not clinically significant; however, it should be interpreted with caution in correlation with other red cell parameters and the patient's clinical condition. RDW 12.8 11.0 - 15.0 % [facility] Platelet Count 185 140 - 400 Thousand/u L [facility] MPV 10.7 7.5 - 12.5 fL [facility] Neutrophil Absolute 2736 1500 - 7800 cells/uL [facility] Lymphocytes Absolute 1332 850 - 3900 cells/uL [facility] Absolute Monocytes 284 200 - 950 cells/uL [facility] Eosinophils Absolute 131 15 - 500 cells/uL [facility] Basophils Absolute 18 0 - 200 cells/uL [facility] Granulocytes % 60.8 % [facility] Lymphocytes % 29.6 % [facility] Monocytes % 6.3 % [facility] Eosinophils % 2.9 % [facility] Basophils % 0.4 % [facility] Comment: Test Performed at: [facility] [address] [place] [address] NUPUR VAZQUEZ MD 05/30/2025 8:28 AM CDT 05/30/2025 8:30 AM CDT Miya Patel MD LAB - HEMATOLOGY ORDER MARIANNA Final Result [facility] [address] [place] [address] * (ABNORMAL) COMPREHENSIVE METABOLIC PANEL (05/30/2025 8:28 AM CDT) Glucose 101(H) 65 - 99 mg/dL [facility] Comment: Fasting reference interval For someone without known diabetes, a glucose value between 100 and 125 mg/dL is consistent with prediabetes and should be confirmed with a follow-up test. BUN 16 7 - 25 mg/dL [facility] Creatinine 1.07(H) 0.50 - 1.05 mg/dL [facility] eGFR by Cystatin C 59(L) > OR = 60 mL/min/1.7 3m2 [facility] BUN/Creatinine Ratio 15 6 - 22 (calc) [facility] Sodium 139 135 - 146 mmol/L [facility] Potassium 4.3 3.5 - 5.3 mmol/L [facility] Chloride 101 98 - 110 mmol/L [facility] CO2 30 20 - 32 mmol/L [facility] Calcium 9.3 8.6 - 10.4 mg/dL [facility] Protein Total 6.1 6.1 - 8.1 g/dL [facility] Albumin 4.2 3.6 - 5.1 g/dL [facility] Globulin Total 1.9 1.9 - 3.7 g/dL (calc) [facility] Albumin/Globulin Ratio 2.2 1.0 - 2.5 (calc) [facility] Bilirubin Total 0.4 0.2 - 1.2 mg/dL [facility] Alkaline Phosphatase 47 37 - 153 U/L [facility] AST 14 10 - 35 U/L [facility] ALT 11 6 - 29 U/L [facility] Comment: Test Performed at: [facility] [address] [place] [address] NUPUR VAZQUEZ MD 05/30/2025 8:28 AM CDT 05/30/2025 8:30 AM CDT us Miya Patel MD LAB - CHEMISTRY ORDERA BLES Final Result Performing Organization Address [facility] Co de Phone Number [facility] [address] [place] [address] * HEPATITIS C AB W/RFLX TO HCV RNA QN PCR (03/02/2021 12:05 PM CDT) Hepatitis C Antibody NON-REACTI VE NON-REACT MARY [facility] Signal to Cut-Off 0.00 <1.00 [facility] Comment: HCV antibody was non-reactive. There is no laboratory evidence of HCV infection. In most cases, no further action is required. However, if recent HCV exposure is suspected, a test for HCV RNA (test code 71561) is suggested. For additional information please refer to http://education.Edmodo/faq/YKM28a6 (This link is being provided for informational/ educational purposes only.) Test Performed at: [facility] [address] [place] [address] MONIQUE BERNAL DO,MPH Blood BLOOD SPECIMEN / Unknown 03/02/2021 12:05 PM CDT 03/02/2021 12:06 PM CDT us Maria Alejandra Galeana MD LAB - CHEMISTRY ORDERABLES Fi nal Result Performing Organization Address [facility] de Phone Number [facility] [address] [place] [address] from Last 3 Months or Most Recently Relevant to Health Maintenance Insurance LAMINE ANTHEM ANTHEM Care Teams Parking Enforcement Manager Relationship Specialty Start Date End Date Sid Ortiz MD PCP - General 10/12/21 Adolfo Llanes MD Orthopedic Surgery 11/16/21
--- OUTSIDE RECORDS SUMMARY | 2025-07-05 15:44 | XMS_ITS | Patient Health Record ---
Author Organization [facility] Address [address] [place] [address] Care Team Providers Care Ore Roaster Name Role Phone Aaa, Provider Primary Care Provider Aquiles James Unavailable [phone] René Osborne Unavailable Unavailable Case, Kwadwo Unavailable [phone] Allergies Allergen (clinical drug ingredient) Drug/Non Drug Allergy documented on EMR Reaction Allergy Type Onset Date Status Substance with sulfonamide structure and antibacterial mechanism of action (substance) Sulfa Antibiotics rash Drug Allergy Active Results Component Value Reference Range Notes TSH-[facility] Reviewed date:02/04/2025 08:19:05 AM Interpretation: Performing Lab: Notes/Report: Items were attached to this order: MAGAZINE EDITOR Testing performed at: [facility], [address] [place], [address], Clay Hoister: NUPUR VAZQUEZ MD TSH 0.28 0.40-4.50 mIU/L COMPREHENSIVE BLOOD COUNT-Qu est Reviewed date:02/04/2025 08:19:05 AM Interpretation: Performing Lab: Notes/Report: Items were attached to this order: MAGAZINE EDITOR Testing performed at: [facility], [address] [place], [address], Clay Hoister: NUPUR VAZQUEZ MD WHITE BLOOD CELL COUNT [...] MPV 10.5 7.5-12.5 fL ABSOLUTE NEUTROPHILS [phone] cells/uL ABSOLUTE LYMPHOCYTES 7598 271-1355 cells/uL ABSOLUTE MONOCYTES 390 200-950 cells/uL ABSOLUTE EOSINOPHILS 179 15-500 cells/uL ABSOLUTE BASOPHILS 28 0-200 cells/uL NEUTROPHILS 51.5 LYMPHOCYTES 35.8 MONOCYTES 8.3 EOSINOPHILS 3.8 BASOPHILS 0.6 Ferritin, [facility] Reviewed date:02/04/2025 08:19:05 AM Interpretation: Performing Lab: Notes/Report: Items were attached to this order: MAGAZINE EDITOR Testing performed at: [facility], [address] [place] [address], [address], Clay Hoister: NUPUR VAZQUEZ MD FERRITIN 26 16-288 ng/mL Free T3 [facility] Reviewed date:02/04/2025 08:19:05 AM Interpretation: Performing Lab: Notes/Report: Items were attached to this order: MAGAZINE EDITOR Testing performed at: [facility], [address] [place], [address], Clay Hoister: NUPUR VAZQUEZ MD T3, FREE 3.2 2.3-4.2 pg/mL COMPREHENSIVE METABOLIC PANE L-[facility] Reviewed date:02/04/2025 08:19:05 AM Interpretation: Performing Lab: Notes/Report: Items were attached to this order: MAGAZINE EDITOR Testing performed at: [facility], [address] [place], [address], Clay Hoister: NUPUR VAZQUEZ MD GLUCOSE 95 65-99 mg/dL [...] 17 10-35 U/L ALT 18 6-29 U/L Reason For Referral No Information Medications Medication [...] 1 tab Orally two times daily Active Spironolactone 100 MG 1 tablet Orally [...] an empty stomach Orally TWO TIMES A DAY; Duration: 90 days Not-Taking Phentermine HCl 15 MG TAKE 1 CAPSULE BY MOUTH EVERY DAY; Duration: 90 01/19/2024 Not-Taking Synthroid 100 MCG TAKE 1 TABLET ONCE DAILY INTHE MORNING ON AN EMPTY STOMACH; Duration: 90 Active Zepbound 5 MG/0.5ML 0.5 mL Subcutaneous Active [...] Notes Problem Impingement syndrome of shoulder region (867071049) SUBACROMIAL IMPINGEMENT OF RIGHT SHOULDER (M75.41) Active confirmed Problem Hypothyroidism (77726703) HYPOTHYROID (244.9) (E03.9) Active confirmed Problem Tear of right rotator cuff (2657880595889653 3) RIGHT ROTATOR CUFF TEAR (M75.101) Active confirmed Problem Localized, primary osteoarthritis of the shoulder region (651031495) PRIMARY OSTEOARTHRITIS OF RIGHT SHOULDER (M19.011) Active confirmed Problem Carpal tunnel syndrome (46286220) LEFT CARPAL TUNNEL SYNDROME (G56.02) Active confirmed Vital Signs Heart Rate 80 /min 02/01/2025 Blood pressure diastolic 80 mm Hg 02/01/2025 Oximetry 99 % 02/01/2025 Weight-kg 60.33 kg 02/01/2025 Height 63 in 02/01/2025 Blood pressure systolic 110 mm Hg 02/01/2025 Weight 133 lbs 02/01/2025 BMI 23.56 kg/m2 02/01/2025 Encounters Encounter Location Date Provider Diagnosis [facility] [address] [place] [id number] 08/02/2024 Daneer Case HYPOTHYROID (244.9) E03.9 [facility] [address] [place] [id number] 02/[facility] HYPOTHYROID (244.9) E03.9 Assessments Encounter Date Diagnosis (ICD Code) Assessment Notes Treatment Notes Treatment Clinical Notes Section Notes 08/02/2024 HYPOTHYROID (244.9) (ICD-10 - E03.9) long standing hypothroidism has lupus neprhitisi now flucutating thryoid level 245.2 trial of T3 with armour but low L therefor T4+T3 dsicussed compliance solo from other meds/food follows low gluten diet OFF COUNTER WAITRESS/WAITER WITH HEADACHE will weight gain/overweight, NOW medication 08/11 add labs for diffuse pain after illness AND NOW IMPROVED 02/01/2025 HYPOTHYROID (244.9) (ICD-10 - E03.9) long standing hypothroidism has lupus neprhitisi now flucutating thryoid level 245.2 trial of T3 with armour but low L therefor T4+T3 dsicussed compliance solo from other meds/food follows low gluten diet OFF COUNTER WAITRESS/WAITER WITH HEADACHE will weight gain/overweight, NOW medication 08/11 add labs for diffuse pain after illness AND NOW IMPROVED Plan Of Treatment Pending Test Test Name Order Date ORTHO SHOULDER RIGHT 2 VIEW - 14624 07/20 CBC (Complete Blood Count) 01/28/2023 T3 [...] Provider Name:Kwadwo Patton, 08/09/2025 08:00:00 AM, [address] [place], [place], [id number], Insurance Providers Payer Name Payer Address Payer Phone Subscriber Number Group Number Insured Name Patient Relationship to Insured Coverage Start Date Coverage End Date [employer] [address] [place] [address] [phone] [id number] BRIGIDA WHITE Self - patient is the insured ASC [employer] [address] [place] [address] [phone] [id number] BRIGIDA HODGE Self - patient is the insured Medications Administered Medication Instructions Date of Administration Dosage Notes Kenalog 40mg 04/23/2022 80 mg Kenalog 07/14/2022 80 mg zzDepo-Medrol 80mg (Drain/In j Major Joint/Bursa) 07/29/2021 80 mg Medical (General) History Medical History History ICD Code asthma hypothyroidism gerd LUPUS NEUROPATHY HYPERTENSION Surgical History Surgery Date(Month/Year) SPINAL CORD STIMULATOR HYSTERECTOMY RIGHT CARPAL TUNNEL RELEASE
--- OUTSIDE RECORDS SUMMARY | 2025-07-05 15:44 | XMS_ITS | Clinical Summary ---
Author Organization [facility] Address [address] [place] [address] Care Team Providers Care Stationary Engineer Apprentice Name Role Phone Sid Ortiz MD Primary Care Provider [phone] Allergies Active Allergy Reactions Criticality Noted Date [...] mcg tablet Take 125 mcg by mouth property damage claims adjustor before breakfast Active lubiprostone (AMITIZA) 24 mcg [...] on file Legal Sex Female 12:55 AM HAND SPINNER Gender Identity Female 02/24/2021 10:21 AM CDT [...] Treatment Not on file Insurance [address] [place] [address] [facility] ACCESS CHOICE [facility] EPO [place] ACCESS CHOICE Care Teams Stationary Engineer Apprentice Relationship Specialty Start Date End Date Sid Ortiz MD [address] [place] [address] PCP - General Family Medicine 01/09/21
--- OUTSIDE RECORDS SUMMARY | 2025-07-05 15:44 | XMS_ITS | Clinical Summary ---
Author Organization [facility] Address [address] [place] [address] Care Team Providers Care Frame Bander Name Role Phone Cande Dudley MD Primary Care Provider [phone] Allergies Active Allergy Reactions Criticality Noted Date Comments Sulfa Antibiotics Rash Low 06/20/2024 Medications buPROPion XL (WELLBUTRIN XL) 150 MG 24 [...] by Each Nostril route daily. 3 Active hydroxychloroqui ne (PLAQUENIL) 200 MG tablet Take 1.5 tablets (300 mg total) by mouth daily. 4 Active levothyroxine (SYNTHROID) 100 MCG tablet Take 1 tablet (100 mcg total) by mouth every morning. Active montelukast (SINGULAIR) 10 MG tablet Take 1 tablet (10 mg total) by mouth daily. 4 Active olopatadine (PATADAY) 0.7 % ophthalmic solution Place 1 drop into both eyes daily. 3 Active omeprazole (PRILOSEC) 20 MG capsule Take [...] daily. Mix with 8 oz water Active AIRSUPRA 90-80 MCG/ACT Aerosol Take 2 puffs by mouth every 4 (four) hours as needed. 4 Active estradiol (VIVELLE-DOT) 0.0375 mg/24hr patch APPLY 1 PATCH TOPICALLY TO THE SKIN 2 TIMES A WEEK DIRECTED 5 Active pregabalin (LYRICA) 50 MG capsule 1 capsule (50 mg total) every 12 (twelve) hours. Active ZEPBOUND 2.5 MG/0.5ML injection Inject 2.5 mg into the skin once a week. 5 Active lisinopril (PRINIVIL) 5 MG tabletIndication s:Primary hypertension Take 1 tablet (5 mg total) by mouth daily. 90 tablet 1 5 Active lisinopril (PRINIVIL) 10 MG tabletIndication s:Primary hypertension Take 1 tablet (10 mg total) by mouth daily. 90 tablet 1 5 025 Discontinu ed(Discont inued by another clinician) amoxicillin-clav ulanate (AUGMENTIN) 875-125 MG tabletIndication s:Non-recurrent acute suppurative otitis media of right ear without spontaneous rupture of tympanic membrane Take 1 tablet (875 mg total) by mouth 2 (two) times daily for 10 days. 20 tablet 5 025 benzonatate (TESSALON) 200 MG capsuleIndicatio ns:Acute cough Take 1 capsule (200 mg total) by mouth 3 (three) times daily as needed for Cough. 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 06/20 Depression screen 07/13/2024 Hypertensive urgency 06/20/2024 Chronic kidney disease 06/01/2021 Irritable bowel syndrome with constipation 04/30 Essential hypertension, benign 12/25/2020 Gastro-esophageal reflux disease without esophag itis 12/25/2020 Mild intermittent asthma, uncomplicated 12/03/19 Irritable bowel syndrome with constipation 03/11 Idiopathic progressive polyneuropathy 03/10/2020 Chronic pain syndrome 07/09/2016 Knee pain 05/08/2014 Major depressive disorder, single episode, mild 11/27/2013 Lupus erythematosus 11/12/2009 Allergic rhinitis 02/29/2008 Intrinsic asthma 02/29/2008 Hypothyroidism 11/12/1989 Encounters Date Type Department Care Team Description 07/02/2025 Scan [facility] Scanned, [facility] 06/19/2025 11:20 AM CDT Office Visit [address] [address] Cande Dudley MD Earache (Pain in right ear and feeling clogged since last night. ); Sinusitis (Cough and sinus issues since Tuesday. ) 06/19/2025 Travel 06/13/2025 Orders Only [address] [address] Cande Dudley MD 05/16/2025 8:00 AM CDT Office Visit [address] [address] Cande Dudley MD Blood Pressure Changes 05/16/2025 Travel 05/06/2025 Scan [facility] Scanned, [facility] 04/25/2025 3:25 PM CDT - 04/25/2025 11:59 PM CDT Hospital Encounter [facility] [address] [place] [address] Roney Posey, PA Discharge Disposition: Home or Self Care (Routine Discharge) 04/25/2025 Travel 04/23/2025 3:28 PM CDT - 04/23/2025 11:59 PM CDT Hospital Encounter [facility] [address] [place] [address] Roney Posey PA Discharge Disposition: Home or Self Care (Routine Discharge) 04/23/2025 Travel 04/18/2025 10:03 AM CDT - 04/18/2025 11:59 PM CDT Hospital Encounter [facility] [address] [place] [address] Roney Posey, PA Discharge Disposition: Home or Self Care (Routine Discharge) 04/18/2025 Travel from Last 3 Months Immunizations Immunization Administration Dates Next Due Fluzone (IIV3, Trivalent, 0.5 ML Prefilled Syrin ) 07/13/2024 Influenza (Generic) 07/16/2021,08/29/2015 Influenza Adult (Generic) 07/15/2021,05/28/2020 MODERNA COVID-19 (CURBSTONE SETTER LEO CHELSIE), MRNA, LNP-S, PF, 50 MCG/ [...] from your doctor or pharmacy? Never 06/20/2024 [facility] Utilities Answer Date Recorded In the past 12 months has th e [employer], gas, oil, or water [employer] threatened to shut off services in your [...] How often do you attend chur or zoroastrianism services? More than 4 times per year 06/20/2024 Do you belong to any clubs o r organizations such as jainism groups, unions, fraternal or athletic groups, or [...] Recorded Patient Health Questionnaire-2 Score 0 06/19/2025 [facility] - Occupational Stress [...] any time in the past 12 m [facility], were you homeless or living in a penitentiary (including now)? 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 Sex Female 11:15 AM CDT Gender Identity Not on file Sexual Orientation Not on file Last Filed Vital Signs Vital Sign Reading Time Taken Comments Blood Pressure 113/75 06/19/2025 11:21 AM CDT Pulse 87 06/19/2025 11:21 AM CDT Temperature 36.2 C (97.1 F) 06/19/2025 11:21 AM CDT Respiratory Rate 18 06/19/2025 11:21 AM CDT Oxygen Saturation 99% 06/19/2025 11:21 AM CDT Inhaled Oxygen Concentration - - Weight 55.5 kg (122 lb 6.4 oz) 06/19/2025 11:21 AM CDT Height 160 cm (5' 3) 06/19/2025 11:21 AM CDT Body Mass Index 21.68 06/19/2025 11:21 AM CDT Plan of Treatment Upcoming Encounters Date Type Department Care Team (Late st Contact Info) Description 12/19/2025 12:40 PM CDT Office Visit [facility] Medical Group Family Medicine [facility] [address] [place] [address] Cande Dudley MD [address] [place] [address] Health Maintenance Due Date Last Done Comments DTaP, Tdap and Td Vaccines (1 - Tdap) 1982 Pneumococcal Vaccine: 50+ Years (1 of 2 - PCV) 1982 COVID-19 Vaccine (4 - season) 2025 01/01/2022, 01/15/2021, 12/20/2020 Influenza Adult (#1) 2025 07/13/2024, 07/16/2021, 07/15/2021, Additional history exists RSV Immunization or 60+ Years (1 - Risk 60-74 years 1-dose series) 07/13/2025 Postponed fro m 2023 (Patient Refused) Zoster Vaccines (1 of 2) 07/13/2025 Pos tponed from 2013 (Patient Refused) Colorectal Cancer Screening Colonoscopy (10 Years) 09/19/2025 Mammogram Screening 12/18/2025 Annual Physical 06/19/2026 06/19/2025, 07/13/2024 Hepatitis C Completed 07/05/2024 PHQ-2 (Physician [place]) Completed 06/19/2025 Hepatitis A Vaccines Aged Out No long er eligible based on patient's age to complete this topic Meningococcal B Vaccine Aged Out No l onger eligible based on patient's age to complete this topic Meningococcal Vaccine Aged Out No danielle leonor eligible based on patient's age to complete this topic RSV Immunizations Under 20 Months Aged Out No longer eligible based on patient's age to complete this topic Goals Goal Patient Goal Type Associated Problems Recent Progress Patient-Stated? Author Health - patient able to perform ADLs independently Lifestyle No Kelly Pollack RN Medical Devices Implanted Type Area Curb Machine Operator Device Identifier Shelf Expiration Date Model / Serial / Lot Stimulator Lead Implant-2016 Implanted:Qty : 1 on 10/01/2016 by Nicole Alfonso MD Lead Implant Spine Thoracic [employer] [id number] / [id number] / Stimulator Lead Implant-2016 Implanted:Qty : 1 on 10/01/2016 by Nicole Alfonso MD Lead Implant Spine Thoracic [employer] [id number] / [id number] / Stimulator Implant-2016 Implanted:Qty : 1 on 10/01/2016 by Nicole Alfonso MD Stimulator Implant Back [employer] [id number] / [id number] / Procedures Procedure Name Priority Date/Time Associated Diagnosis Comments VITAMIN D, 25 OH Routine 06/13/2025 8:10 AM CDT TSH W/REFLEX Routine 06/13/2025 8:10 AM CDT VITAMIN B-12 Routine 06/13/2025 8:10 AM CDT CBC W/DIFF AUTOMATED Routine 06/13/2025 8:10 AM CDT COMPREHENSIVE METABOLIC PANEL Routine 06/13/2025 8:10 AM CDT LIPID PANEL Routine 06/13/2025 8:10 AM CDT MRI THOR SPINE WO CON Routine 04/25/2025 3:51 PM CDT Other chronic pain MRI LUMB SPINE WO CON Routine 04/23/2025 4:00 PM CDT Spinal cord stimulator dysfunction, initial encounter XR ABD AP+LAT STAT 04/18/2025 10:48 AM CDT Encounter for imaging to screen for metal prior to MRI HEPATITIS C ANTIBODY W/RFX TO HCV RNA Routine 07/05/2024 9:49 AM CDT from Last 3 Months or Most Recently Relevant to Health Maintenance Results * TSH W/REFLEX (06/13/2025 8:10 AM CDT) TSH 1.81 0.40 - 4.50 mIU/L [email or web address] 06/13/2025 8:10 AM CDT 06/13/2025 8:11 AM CDT Narrative [facility] - [facility] - 06/14/2025 2:48 AM CDT FASTING:YES FASTING: YES Resulting Agency Comment Performing Organization Information: Site ID: SHARON Name: [facility] Address: [address] [place] [id number] Director: Eduardo Cordoba MD us Cande Dudley MD LABORATORY Final Result Performing Organization Address City/[facility]/ZIP Co de Phone Number [email or web address] [address] [address], * VITAMIN B-12 (06/13/2025 8:10 AM CDT) Pathologist [facility] VITAMIN B12 S/P/B 418 200 - 1,100 pg/mL [facility] 06/13/2025 8:10 AM CDT 06/13/2025 8:11 AM CDT Narrative [facility] - [facility] - 06/14/2025 2:48 AM CDT FASTING:YES FASTING: YES Resulting Agency Comment Performing Organization Information: Site ID: SHARON Name: [facility] Address: [address] [place] [phone] Director: Eduardo Cordoba MD us Cande Dudley MD LABORATORY Final Result Performing Organization Address City/[facility]/ZIP Co de Phone Number [email or web address] [address] [address] * (ABNORMAL) COMPREHENSIVE METABOLIC PANEL (06/13/2025 8:10 AM CDT) Pathologist [facility] GLUCOSE 89 65 - 99 mg/dL [facility] Comment: Fasting reference interval BUN 17 7 - 25 mg/dL [facility] CREATININE S/P/B 1.13(H) 0.50 - 1.05 mg/dL [facility] GFR ESTIMATE 55(L) > OR = 60 mL/min/1. 73m2 [facility] BUN CREATININE RATIO 15 6 - 22 (calc) [facility] SODIUM S/P/B 141 135 - 146 mmol/L [facility] POTASSIUM S/P/B 4.4 3.5 - 5.3 mmol/L [facility] CHLORIDE S/P/B 104 98 - 110 mmol/L [facility] CO2 30 20 - 32 mmol/L [facility] CALCIUM S/P/B 9.4 8.6 - 10.4 mg/dL [facility] [employer] [facility] TOTAL PROTEIN S/P/B 6.3 6.1 - 8.1 g/dL [facility] ALBUMIN S/P/B 4.4 3.6 - 5.1 g/dL [facility] [employer] [facility] GLOBULIN 1.9 1.9 - 3.7 g/dL (calc) [facility] ALBUMIN/GLOBULIN RATIO 2.3 1.0 - 2.5 (calc) [facility] BILIRUBIN TOTAL S/P/B 0.4 0.2 - 1.2 mg/dL [facility] ALKALINE PHOSPHATASE S/P/B 45 37 - 153 U/L [facility] AST 15 10 - 35 U/L [facility] ALT 9 6 - 29 U/L [facility] [employer] [facility] 06/13/2025 8:10 AM CDT 06/13/2025 8:11 AM CDT Narrative [facility]UCY [facility] - 06/14/2025 2:48 AM CDT FASTING:YES FASTING: YES Resulting Agency Comment Performing Organization Information: Site ID: [place] Name: [facility] Address: [address] [place] [address] Director: Eduardo Cordoba MD Cande Dudley MD LABORATORY Final Result [facility]STICS - [facility]DERS [facility] [address] [place] [address], * (ABNORMAL) LIPID PANEL (06/13/2025 8:10 AM CDT) CHOLESTEROL 189 <200 mg/dL [facility] HDL 58 > OR = 50 mg/dL [facility] TRIGLYCERIDES 103 <150 mg/dL [facility] LDL (CALCULATED) 110(H) mg/dL (calc) [facility] Comment: Reference range: <100 Desirable range <100 mg/dL for primary prevention; <70 mg/dL for patients with CHD or diabetic patients with > or = 2 CHD risk factors. LDL-C is now calculated using the Sameer calculation, which is a validated novel method providing better accuracy than the Friedewald equation in the estimation of LDL-C. Kade SS et al. MEHREEN. 2013;310(50): 4500-1012 (http://education.[employer]/faq/WXU515) CHOL/HDL RATIO 3.3 <5.0 (calc) [facility] NON HDL CHOLESTEROL 131(H) <130 mg/dL (calc) [facility] Comment: For patients with diabetes plus 1 major ASCVD risk factor, treating to a non-HDL-C goal of <100 mg/dL (LDL-C of <70 mg/dL) is considered a therapeutic option. 06/13/2025 8:10 AM CDT 06/13/2025 8:11 AM CDT Narrative [facility] - [facility] - 06/14/2025 2:48 AM CDT FASTING:YES FASTING: YES Resulting Agency Comment Performing Organization Information: Site ID: [place] Name: [facility] Address: [address] [place] [address] Director: Eduardo Cordoba MD Cande Dudley MD LABORATORY Final Result [facility] [address] [place] [address], * CBC W/DIFF AUTOMATED (06/13/2025 8:10 AM CDT) Pathologist [facility] WBC 4.8 3.8 - 10.8 Thousand/u L [facility] RBC 4.07 3.80 - 5.10 Million/uL [facility] HGB 12.8 11.7 - 15.5 g/dL [facility] HCT 38.5 35.0 - 45.0 % [facility] MCV 94.6 80.0 - 100.0 fL [facility] MCH 31.4 27.0 - 33.0 pg [facility] MCHC 33.2 32.0 - 36.0 g/dL [facility] Comment: For adults, a slight decrease in the calculated MCHC value (in the range of 30 to 32 g/dL) is most likely not clinically significant; however, it should be interpreted with caution in correlation with other red cell parameters and the patient's clinical condition. RDW 12.3 11.0 - 15.0 % [facility] DIAGNOSTICS [facility] PLT 207 140 - 400 Thousand/u L [facility] [employer] [facility] MPV 11.0 7.5 - 12.5 fL [facility] ABS. NEUTROPHILS 2,405 1,500 - 7,800 cells/uL [facility] ABS. LYMPHOCYTES 1,810 850 - 3,900 cells/uL [facility] [employer] [facility] ABS. MONOCYTES 374 200 - 950 cells/uL [facility] ABS. EOSINOPHILS 182 15 - 500 cells/uL [facility] ABS. BASOPHILS 29 0 - 200 cells/uL [facility] SEG NEUTROPHILS 50.1 % [facility] LYMPHOCYTES 37.7 % [email or web address] [place] MONOCYTES 7.8 % [facility] [place] EOSINOPHILS 3.8 % [email or web address] [place] BASOPHILS 0.6 % [email or web address] [place] 06/13/2025 8:10 AM CDT 06/13/2025 8:11 AM CDT Narrative [email or web address] DIAGNOSTICS - [facility] - 06/14/2025 2:48 AM CDT FASTING:YES FASTING: YES Resulting Agency Comment Performing Organization Information: Site ID: [place] Name: [facility] Address: [address] [address] Director: Eduardo Cordoba MD Cande Dudley MD LABORATORY Final Result [facility] [address] [place] [address], * VITAMIN D, 25 OH (06/13/2025 8:10 AM CDT) VITAMIN D 25 HYDROXY TOTAL S/P/B 67 30 - 100 ng/mL [facility] Comment: Vitamin D Status 25-OH Vitamin D: Deficiency: <20 ng/mL Insufficiency: 20 - 29 ng/mL Optimal: > or = 30 ng/mL For 25-OH Vitamin D testing on patients on D2-supplementation and patients for whom quantitation of D2 and D3 fractions is required, the QuestAssureD(TM) 25-OH VIT D, (D2,D3), LC/MS/MS is recommended: order code [id number] (patients >2yrs). See Note 1 Note 1 For additional information, please refer to http://education.[employer]/faq/LPD945 (This link is being provided for informational/ educational purposes only.) 06/13/2025 8:10 AM CDT 06/13/2025 8:11 AM CDT Narrative [facility] [employer] [facility]DERS - 06/14/2025 2:48 AM CDT FASTING:YES FASTING: YES Resulting Agency Comment Performing Organization Information: Site ID: [place] Name: [facility] Address: [address] [place] [phone] Director: Eduardo Cordoba MD us Cande Dudley MD LABORATORY Final Result [email or web address] DI[facility]NOSTICS - [facility] [id number] [place] [address], [place] * MRI THOR SPINE WO CON (04/25/2025 3:51 PM CDT) Anatomical Region Laterality Modality Spine Magnetic Resonan ce 04/28/2025 2:04 PM CDT Impressions 04/28/2025 2:08 PM CDT IMPRESSION: 1) No significant focal abnormalities are demonstrated. Ordered By: RONEY POSEY Interpreted By: Anant Navarrete MD, 04/28/2025 2:04 PM Narrative 04/28/2025 2:08 PM [address]T [address] [address] Examination: MRI THOR SPINE WO CON, MRI LUMB SPINE WO CON Exam time: 04/25/2025 3:31 PM Clinical history: Chronic back pain, spinal stimulator Comparison: None Technique: Sagittal T1, T2 FSE and STIR images thoracic and lumbar spine. Axial T2 gradient echo, T2 FSE and T1 weighted images thoracic spine. Axial T1 and T2- weighted images lumbar spine. No intravenous contrast. Findings: MRI thoracic spine: Thoracic vertebral bodies are in good alignment. Thoracic vertebral body heights and disc spaces are well-maintained. No significant marrow replacing lesions are noted in the thoracic spine. There is artifact related to dorsal column stimulator leads along the dorsal aspect of the lower thoracic spine. The thoracic spinal cord and conus have normal morphology. No focal thoracic spinal cord lesion is demonstrated. There is no significant acute paraspinous soft tissue abnormality. There is no focal significant disc protrusion/herniation. No significant central stenosis or cord compression. MRI of lumbar spine: Lumbar vertebral bodies are in good alignment. Lumbar vertebral body heights and disc spaces are fairly well-maintained. No evidence of spondylolisthesis. No significant marrow replacing lesions are noted in the lumbar spine. There is artifact from implanted dorsal column stimulator leads partially obscuring the pelvis. The conus is grossly unremarkable normal level. There is no significant focal disc protrusion/herniation. No significant central stenosis or foraminal narrowing is demonstrated. No significant acute paraspinous soft tissue abnormality demonstrated. Procedure Note Anant Navarrete MD - 04/28/[address] [address] Examination: MRI THOR SPINE WO CON, MRI LUMB SPINE WO CON Exam time: 04/25/2025 3:31 PM Clinical history: Chronic back pain, spinal stimulator Comparison: None Technique: Sagittal T1, T2 FSE and STIR images thoracic and lumbar spine.Axial T2 gradient echo, T2 FSE and T1 weighted images thoracic spine.Axial T1 and T2- weighted images lumbar spine. No intravenous contrast. Findings: MRI thoracic spine: Thoracic vertebral bodies are in good alignment.Thoracic vertebral body heights and disc spaces are well-maintained. Nosignificant marrow replacing lesions are noted in the thoracic spine. There is artifact related to dorsal column stimulator leads along thedorsal aspect of the lower thoracic spine. The thoracic spinal cord andconus have normal morphology. No focal thoracic spinal cord lesion isdemonstrated. There is no significant acute paraspinous soft tissue abnormality. Thereis no focal significant disc protrusion/herniation. No significant centralstenosis or cord compression. MRI of lumbar spine: Lumbar vertebral bodies are in good alignment. Lumbarvertebral body heights and disc spaces are fairly well-maintained. Noevidence of spondylolisthesis. No significant marrow replacing lesions arenoted in the lumbar spine. There is artifact from implanted dorsal columnstimulator leads partially obscuring the pelvis. The conus is grosslyunremarkable normal level. There is no significant focal disc protrusion/herniation. No significantcentral stenosis or foraminal narrowing is demonstrated. No significantacute paraspinous soft tissue abnormality demonstrated. IMPRESSION: 1) No significant focal abnormalities are demonstrated. Ordered By: RONEY POSEY Interpreted By: Anant Navarrete MD, 04/28/2025 2:04 PM us Roney Pose[place] MRI Final Resul t * MRI LUMB SPINE WO CON (04/23/2025 4:00 PM CDT) Anatomical Region Laterality Modality Spine Magnetic Resonan ce 04/28/2025 2:04 PM CDT Impressions 04/28/2025 2:08 PM CDT IMPRESSION: 1) No significant focal abnormalities are demonstrated. Ordered By: RONEY POSEY Interpreted By: Anant Navarrete MD, 04/28/2025 2:04 PM Narrative 04/28/2025 2:08 PM CDT [address] [place] [address] Examination: MRI THOR SPINE WO CON, MRI LUMB SPINE WO CON Exam time: 04/25/2025 3:31 PM Clinical history: Chronic back pain, spinal stimulator Comparison: None Technique: Sagittal T1, T2 FSE and STIR images thoracic and lumbar spine. Axial T2 gradient echo, T2 FSE and T1 weighted images thoracic spine. Axial T1 and T2- weighted images lumbar spine. No intravenous contrast. Findings: MRI thoracic spine: Thoracic vertebral bodies are in good alignment. Thoracic vertebral body heights and disc spaces are well-maintained. No significant marrow replacing lesions are noted in the thoracic spine. There is artifact related to dorsal column stimulator leads along the dorsal aspect of the lower thoracic spine. The thoracic spinal cord and conus have normal morphology. No focal thoracic spinal cord lesion is demonstrated. There is no significant acute paraspinous soft tissue abnormality. There is no focal significant disc protrusion/herniation. No significant central stenosis or cord compression. MRI of lumbar spine: Lumbar vertebral bodies are in good alignment. Lumbar vertebral body heights and disc spaces are fairly well-maintained. No evidence of spondylolisthesis. No significant marrow replacing lesions are noted in the lumbar spine. There is artifact from implanted dorsal column stimulator leads partially obscuring the pelvis. The conus is grossly unremarkable normal level. There is no significant focal disc protrusion/herniation. No significant central stenosis or foraminal narrowing is demonstrated. No significant acute paraspinous soft tissue abnormality demonstrated. Procedure Note Anant Navarrete MD - 04/28/[address] [address] Examination: MRI THOR SPINE WO CON, MRI LUMB SPINE WO CON Exam time: 04/25/2025 3:31 PM Clinical history: Chronic back pain, spinal stimulator Comparison: None Technique: Sagittal T1, T2 FSE and STIR images thoracic and lumbar spine.Axial T2 gradient echo, T2 FSE and T1 weighted images thoracic spine.Axial T1 and T2- weighted images lumbar spine. No intravenous contrast. Findings: MRI thoracic spine: Thoracic vertebral bodies are in good alignment.Thoracic vertebral body heights and disc spaces are well-maintained. Nosignificant marrow replacing lesions are noted in the thoracic spine. There is artifact related to dorsal column stimulator leads along thedorsal aspect of the lower thoracic spine. The thoracic spinal cord andconus have normal morphology. No focal thoracic spinal cord lesion isdemonstrated. There is no significant acute paraspinous soft tissue abnormality. Thereis no focal significant disc protrusion/herniation. No significant centralstenosis or cord compression. MRI of lumbar spine: Lumbar vertebral bodies are in good alignment. Lumbarvertebral body heights and disc spaces are fairly well-maintained. Noevidence of spondylolisthesis. No significant marrow replacing lesions arenoted in the lumbar spine. There is artifact from implanted dorsal columnstimulator leads partially obscuring the pelvis. The conus is grosslyunremarkable normal level. There is no significant focal disc protrusion/herniation. No significantcentral stenosis or foraminal narrowing is demonstrated. No significantacute paraspinous soft tissue abnormality demonstrated. IMPRESSION: 1) No significant focal abnormalities are demonstrated. Ordered By: RONEY POSEY Interpreted By: Anant Navarrete MD, 04/28/2025 2:04 PM us [facility] Pose[place] MRI Final Resul t * XR ABD AP+LAT (04/18/2025 10:48 AM CDT) Anatomical Region Laterality Modality Abdomen Radiographic Marla ging 04/18/2025 11:0 1 AM CDT Impressions 04/18/2025 11:44 AM CDT IMPRESSION: Implanted stimulator device with intact dual leads. Ordered By: PROVIDER NON-STAFF Interpreted By: Mal Rai, 04/18/2025 11:01 AM Narrative 04/18/2025 11:44 AM CDT [address] [address] IMAGING STUDIES: XR ABD AP+LAT DATE: 04/18/2025 [...] Procedure Note Mal Rai MD - 04/18/[address] [address] IMAGING STUDIES: XR ABD AP+LATDATE: 04/18/2025 10:30 AM HISTORY: Check for abandoned leads and Stimulator [id number] female. Requested evaluation of stimulator and leads [...] Provider Non-Staff GENERAL IMAGING Final Result * HEPATITIS C ANTIBODY W/RFX TO HCV RNA (07/05/2024 9:49 AM CDT) HEPATITIS C AB NON-REACT MARY NON-REACT MARY [facility] Comment: HCV antibody was non-reactive. There is no laboratory evidence of HCV infection. In most cases, no further action is required. However, if recent HCV exposure is suspected, a test for HCV RNA (test code 21846) is suggested. For additional information please refer to http://education.inSparq/faq/KCI59g1 (This link is being provided for informational/ educational purposes only.) 07/05/2024 9:49 AM CDT 07/05/2024 9:50 AM CDT Narrative Resulting Agency Comment Performing Organization Information: Site ID: [place] Name: [facility] Address: [address] [id number] Director: Eduardo Cordoba MD Cande Dudley MD LABORATORY Final Result [facility] [place] [address] [place] [address], from Last 3 Months or Most Recently Relevant to Health Maintenance [place] [address] [address] Advance Directives * Full Code (Latest Code Status on File) Date Activated Date Inactivated Comments 06/20/2024 7:29 PM 06/21/2024 5:27 PM Care Teams Frame Bander Relationship Specialty Start Date End Date Cande Dudley MD [address] [place] [address] PCP - General FAMILY PRACTICE 06/21/24
== END 2025-07-05 15:39 | disposition home or self-care (01) ==
LOC: ANHCARD 15:41
PROVIDERS: Visit Provider Physician Assistant
DX: Z01.818 Encounter for other preprocedural examination (principal); R94.31 Abnormal electrocardiogram [ECG] [EKG]
CPT/HCPCS: 93005